=== PATIENT | female | born 1985 | race Caucasian/White ===

== ENCOUNTER → 2017-06-12 08:53 | Outpatient (CLI) | payer MEDICAID | END | disposition home or self-care (01) | LOC: D.NM 08:53 | DX: M25.562 Pain in left knee (principal) ==

== ENCOUNTER 2017-06-23 12:35 | Inpatient (IN) | payer MEDICAID ==
[~2017-06-23] VITALS: Ht 167.6 cm; Wt 63.6 kg
[2017-06-23 16:17] LABS: BASOPHILS 0.1 % (0-2); EOSINOPHILS 0.3 % (0-7); HEMATOCRIT 37.7 % (36.0-48.0); HEMOGLOBIN 12.9 g/dL (12-16); IMMATURE GRANULOCYTES 0.2 % (0-5); LYMPHOCYTES 13.3 % (15-50); MCH 31.1 pg (26.0-34.0); MCHC 34.2 g/dL (31.0-37.0); MCV 90.8 fL (80.0-100.0); MEAN PLATELET VOLUME 9.2 fL (7.4-10.4); NEUTROPHILS 81.1 % (40-80); PLATELET COUNT 251 10x3/uL (130-400); RBC 4.15 10x6/uL (4.00-5.40)
[2017-06-23 16:35] LABS: ALBUMIN 3.7 g/dL (3.4-5.0); ANION GAP 12.7 mmol/L (8-16); BILIRUBIN - TOTAL 0.56 mg/dL (0.2-1.3); CALCIUM 8.9 mg/dL (8.5-10.1); CARBON DIOXIDE 25.6 mmol/L (21.0-32.0); POTASSIUM - SERUM 3.3 mmol/L (3.5-5.1); PROTEIN - SERUM 7.3 g/dL (6.4-8.2)
[2017-06-23 16:52] LABS: UDS - AMPHET POSITIVE QUAL (NEGATIVE); UDS - BARB NEGATIVE QUAL (NEGATIVE); UDS - BENZO NEGATIVE QUAL (NEGATIVE); UDS - COCAINE NEGATIVE QUAL (NEGATIVE); UDS - OPIATE POSITIVE QUAL (NEGATIVE); UDS - PCP NEGATIVE QUAL (NEGATIVE); UDS - THC POSITIVE QUAL (NEGATIVE)
[2017-06-23 17:03] LABS: APPEARANCE CLEAR (CLEAR); BILIRUBIN NEGATIVE (NEGATIVE); COLOR YELLOW (YELLOW); GLUCOSE NEGATIVE (NEGATIVE); KETONE LARGE mg/dL (NEGATIVE); NITRITE NEGATIVE (NEGATIVE); PROTEIN NEGATIVE (NEGATIVE); SPECIFIC GRAVITY 1.025 (1.005-1.020); UROBILINOGEN NORMAL (NORMAL)
[2017-06-23 17:05] LABS: BACTERIA FEW /hpf (NONE SEEN); WHITE CELLS - URINE 0-5 /hpf (0-5)
[2017-06-23 23:02] VITALS: BP 92/63
[2017-06-23] MEDS ORDERED: PROZAC20 MG PO (23:13)
[2017-06-23] MEDS ORDERED: KLONOPIN1 MG PO (23:13)
[2017-06-23] MEDS ORDERED: ATIVAN2 MG PO (23:26)
[2017-06-23] MEDS ORDERED: PERCOCET 10/3251 TA1 PO (23:27)
[2017-06-23] MEDS ORDERED: BUSPAR5 MG PO (23:28)
[2017-06-23] MEDS ORDERED: PRENATAL COMPLE1 TAB PO (23:29)
[2017-06-23] MEDS ORDERED: VALIUM5 MG PO (23:29)
[2017-06-23 23:45] VITALS: BP 92/63; BMI 22.6
[2017-06-24 02:45] VITALS: BP 92/63
[2017-06-24 04:32] VITALS: BP 87/49
[2017-06-24 09:16] VITALS: Ht 167.6 cm; Wt 63.6 kg
[2017-06-24 12:27] VITALS: BP 105/64
[2017-06-24 22:58] VITALS: BP 105/55
[2017-06-25 01:21] VITALS: BP 93/57
[2017-06-25 05:44] VITALS: BP 106/54
[2017-06-25 08:32] VITALS: BP 100/58
[2017-06-25 12:07] VITALS: BP 97/33
[2017-06-25 23:07] VITALS: BP 101/59
[2017-06-26 05:06] VITALS: BP 89/55
[2017-06-26 08:11] VITALS: BP 94/52
[2017-06-26] MEDS ORDERED: PERCOCET 10/3251 TA1 PO (12:10)
[2017-06-26 12:21] VITALS: BP 90/56
[2017-07-03] MEDS ORDERED: ZOFRAN ODT4 MG/UDTAB PO (14:03)
== END 2017-06-26 15:39 | disposition home or self-care (01) | DRG 565 ==
LOC: D.ER 12:35 → D.MS 18:55 → D.EDHOLD 18:55 → D.MS 19:20
PROVIDERS: Nurse Practitioner Family
DX: D16.22 Benign neoplasm of long bones of left lower limb (principal); M90.562 Osteonecrosis in diseases classified elsewhere, left lower leg; K21.9 Gastro-esophageal reflux disease without esophagitis; F31.9 Bipolar disorder, unspecified; F43.10 Post-traumatic stress disorder, unspecified; F17.200 Nicotine dependence, unspecified, uncomplicated; Y04.0XXA Assault by unarmed brawl or fight, initial encounter

== ENCOUNTER → 2017-07-03 16:09 | Outpatient (CLI) | payer MEDICAID ==
[2017-06-24 09:16] VITALS: BMI 22.6
[2017-07-03 13:59] LABS: BASOPHILS 0.2 % (0-2); EOSINOPHILS 4.7 % (0-7); HEMATOCRIT 45.2 % (36.0-48.0); HEMOGLOBIN 14.9 g/dL (12-16); IMMATURE GRANULOCYTES 0.3 % (0-5); LYMPHOCYTES 21.8 % (15-50); MCH 30.5 pg (26.0-34.0); MCV 92.6 fL (80.0-100.0); MEAN PLATELET VOLUME 8.8 fL (7.4-10.4); MONOCYTES 7.3 % (2-11); NEUTROPHILS 65.7 % (40-80); PLATELET COUNT 268 10x3/uL (130-400); RBC 4.88 10x6/uL (4.00-5.40); RDW 12.9 % (11.5-14.5)
[2017-07-03 14:08] LABS: APTT 27.4 SECONDS (22.8-39.4); INR 0.99 (0.85-1.17); PROTIME 12.7 SECONDS (11.6-15.0)
[2017-07-03 14:11] LABS: APPEARANCE CLOUDY (CLEAR); BACTERIA MANY /hpf (NONE SEEN); BILIRUBIN NEGATIVE (NEGATIVE); COLOR YELLOW (YELLOW); EPITHELIAL CELLS 0-5 /hpf (0-5); GLUCOSE NEGATIVE (NEGATIVE); KETONE NEGATIVE (NEGATIVE); NITRITE POSITIVE (NEGATIVE); PROTEIN TRACE mg/dL (NEGATIVE); RED CELLS - URINE 0-5 /hpf (0-5); UROBILINOGEN NORMAL (NORMAL)
[2017-07-03 14:12] LABS: ANION GAP 12.6 mmol/L (8-16); CALCIUM 8.9 mg/dL (8.5-10.1); POTASSIUM - SERUM 3.6 mmol/L (3.5-5.1)
[~2017-07-03 16:09] MED LIST: ATIVAN2 MG PO; BENADRYL25 MG PO; BUSPAR5 MG PO; COLACE100 MG PO; DILAUDID4 MG; DILAUDID4 MG PO; ELIQUIS2.5 MG PO; KLONOPIN1 MG PO; PERCOCET 10/3251 TA1 PO; PRENATAL COMPLE1 TAB PO; PROZAC20 MG PO; VALIUM 2 MG TAB2 MG PO; VALIUM5 MG PO; VIBRAMYCIN 100100 MG PO; ZOFRAN ODT4 MG/UDTAB PO
== END | disposition home or self-care (01) ==
LOC: D.OPS 16:09 → EDSTATUS 07-04 07:30 → D.SDCHOLD 07-04 07:30 → D.PAN 07-04 07:30 → D.OPS 07-04 07:30
PROVIDERS: Orthopaedic Surgery
DX: D16.21 Benign neoplasm of long bones of right lower limb (principal); Z01.810 Encounter for preprocedural cardiovascular examination; Z01.811 Encounter for preprocedural respiratory examination; Z01.812 Encounter for preprocedural laboratory examination

== ENCOUNTER 2017-07-10 09:30 | Inpatient (IN) | payer MEDICAID ==
[~2017-07-10] VITALS: Ht 167.6 cm; Wt 60.0 kg
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
[~2017-07-10 09:30] MED LIST changes: -BENADRYL25 MG PO; -COLACE100 MG PO; -DILAUDID4 MG; -DILAUDID4 MG PO; -ELIQUIS2.5 MG PO; -VALIUM 2 MG TAB2 MG PO; -VIBRAMYCIN 100100 MG PO
[2017-07-10] MEDS ORDERED: DILAUDID4 MG (09:59)
[2017-07-10 10:05] VITALS: BP 108/71; Ht 167.6 cm; Wt 60.0 kg
[2017-07-10 10:08] LABS: APPEARANCE CLEAR (CLEAR); BILIRUBIN NEGATIVE (NEGATIVE); COLOR STRAW (YELLOW); GLUCOSE NEGATIVE (NEGATIVE); KETONE NEGATIVE (NEGATIVE); NITRITE NEGATIVE (NEGATIVE); PROTEIN NEGATIVE (NEGATIVE); SPECIFIC GRAVITY 1.005 (1.005-1.020); UROBILINOGEN NORMAL (NORMAL)
[2017-07-10 14:10] VITALS: BP 106/59
[2017-07-10 20:00] VITALS: BP 105/69
[2017-07-11 04:00] VITALS: BP 106/70
[2017-07-11 06:29] LABS: HEMATOCRIT 31.9 % (36.0-48.0); HEMOGLOBIN 10.3 g/dL (12-16); MCH 29.9 pg (26.0-34.0); MCHC 32.3 g/dL (31.0-37.0); MCV 92.7 fL (80.0-100.0); MEAN PLATELET VOLUME 9.3 fL (7.4-10.4); RBC 3.44 10x6/uL (4.00-5.40); RDW 12.8 % (11.5-14.5); WBC 16.1 10x3/uL (4.8-10.8)
[2017-07-11 08:28] VITALS: BP 109/72
[2017-07-11 13:09] VITALS: BP 118/85
[2017-07-11 16:03] VITALS: BP 116/74
[2017-07-11 20:00] VITALS: BP 128/76
[2017-07-12 04:00] VITALS: BP 117/75
[2017-07-12 05:08] LABS: HEMATOCRIT 26.3 % (36.0-48.0); HEMOGLOBIN 8.7 g/dL (12-16); MCH 30.2 pg (26.0-34.0); MCHC 33.1 g/dL (31.0-37.0); MCV 91.3 fL (80.0-100.0); MEAN PLATELET VOLUME 9.2 fL (7.4-10.4); RBC 2.88 10x6/uL (4.00-5.40); RDW 12.9 % (11.5-14.5)
[2017-07-12 05:10] LABS: WBC 11.2 10x3/uL (4.8-10.8)
[2017-07-12 08:24] VITALS: BP 126/79
[2017-07-12] MEDS ORDERED: DILAUDID4 MG PO (08:34)
[2017-07-12] MEDS ORDERED: ELIQUIS2.5 MG PO (08:34)
== END 2017-07-12 17:08 | disposition home or self-care (01) | DRG 470 ==
LOC: D.SDCHOLD 09:30 → D.MS 09:30 → D.SDCHOLD 11:45 → D.MS 13:49
PROVIDERS: Orthopaedic Surgery
PROC: 0SRD0JZ Replacement of Left Knee Joint with Synthetic Substitute, Open Approach (ICD-10-PCS; principal; 2017-07-10 11:45)
DX: D16.22 Benign neoplasm of long bones of left lower limb (principal); D62 Acute posthemorrhagic anemia; F17.200 Nicotine dependence, unspecified, uncomplicated

== ENCOUNTER 2017-08-18 08:18 | Inpatient (IN) | payer MEDICAID ==
[~2017-08-18] VITALS: Ht 167.6 cm; Wt 59.1 kg
[2017-08-18] VITALS (10 sets, daily range): BP systolic 102–135; BP diastolic 68–85; BMI 21.0
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
[~2017-08-18 08:18] MED LIST changes: +DILAUDID4 MG; +DILAUDID4 MG PO; +ELIQUIS2.5 MG PO
[2017-08-18] MEDS ORDERED: VIBRAMYCIN 100100 MG PO (09:07)
[2017-08-18 10:24] LABS: HEMATOCRIT 36.8 % (36.0-48.0); HEMOGLOBIN 11.9 g/dL (12-16); MCH 30.4 pg (26.0-34.0); MCHC 32.3 g/dL (31.0-37.0); MCV 93.9 fL (80.0-100.0); MEAN PLATELET VOLUME 9.5 fL (7.4-10.4); RBC 3.92 10x6/uL (4.00-5.40); RDW 13.7 % (11.5-14.5); WBC 7.4 10x3/uL (4.8-10.8)
[2017-08-18 10:34] LABS: APTT 28.7 SECONDS (22.8-39.4); INR 0.94 (0.85-1.17); PROTIME 12.1 SECONDS (11.6-15.0)
[2017-08-19] VITALS: BP 103/72
[2017-08-19 04:00] VITALS: BP 121/77
[2017-08-19 05:42] LABS: HEMATOCRIT 36.1 % (36.0-48.0); HEMOGLOBIN 11.5 g/dL (12-16); MCH 30.2 pg (26.0-34.0); MCHC 31.9 g/dL (31.0-37.0); MCV 94.8 fL (80.0-100.0); MEAN PLATELET VOLUME 9.7 fL (7.4-10.4); RBC 3.81 10x6/uL (4.00-5.40); RDW 13.6 % (11.5-14.5); WBC 8.5 10x3/uL (4.8-10.8)
[2017-08-19 08:54] VITALS: BP 122/80
[2017-08-19 15:57] VITALS: BP 126/74
[2017-08-19 23:18] VITALS: BP 111/68
[2017-08-20 05:17] VITALS: BP 121/75
[2017-08-20 06:18] LABS: HEMOGLOBIN 10.9 g/dL (12-16); MCH 30.1 pg (26.0-34.0); MCHC 32.1 g/dL (31.0-37.0); MCV 93.9 fL (80.0-100.0); MEAN PLATELET VOLUME 9.6 fL (7.4-10.4); RBC 3.62 10x6/uL (4.00-5.40); RDW 13.3 % (11.5-14.5)
[2017-08-20 08:14] VITALS: BP 113/70
[2017-08-20 12:13] VITALS: BP 130/77
[2017-08-20 16:03] VITALS: BP 122/69
[2017-08-21 09:01] VITALS: BP 103/63
[2017-08-21 13:06] VITALS: BP 103/60
[2017-08-21 15:22] VITALS: BP 108/66
[2017-08-21 21:56] VITALS: BP 112/67
[2017-08-22 05:18] VITALS: BP 124/68
[2017-08-22 09:13] VITALS: BP 84/54
[2017-08-22 15:00] VITALS: BP 100/57
[2017-08-22 15:38] VITALS: Ht 167.6 cm; Wt 59.1 kg
[2017-08-22 18:17] VITALS: BP 103/58
[2017-08-22 20:00] VITALS: BP 110/63
[2017-08-23 04:00] VITALS: BP 98/57
[2017-08-23 09:03] VITALS: BP 122/65
[2017-08-23 13:32] VITALS: BP 98/62
[2017-08-23 18:59] VITALS: BP 86/53
[2017-08-23 20:00] VITALS: BP 111/69
[2017-08-24 06:07] VITALS: BP 105/71
[2017-08-24 06:21] LABS: BASOPHILS 0.3 % (0-2); EOSINOPHILS 11.5 % (0-7); HEMATOCRIT 40.4 % (36.0-48.0); HEMOGLOBIN 12.9 g/dL (12-16); IMMATURE GRANULOCYTES 0.3 % (0-5); LYMPHOCYTES 28.7 % (15-50); MCH 29.9 pg (26.0-34.0); MCHC 31.9 g/dL (31.0-37.0); MCV 93.7 fL (80.0-100.0); MEAN PLATELET VOLUME 9.5 fL (7.4-10.4); MONOCYTES 9.4 % (2-11); NEUTROPHILS 49.8 % (40-80); RBC 4.31 10x6/uL (4.00-5.40); RDW 13.6 % (11.5-14.5); WBC 9.4 10x3/uL (4.8-10.8)
[2017-08-24 06:26] LABS: PLATELET COUNT 379 10x3/uL (130-400)
[2017-08-24 06:48] LABS: CALC OSMOLALITY 270 mosm/kg (275-300); CALCIUM 9.4 mg/dL (8.5-10.1); CARBON DIOXIDE 25.3 mmol/L (21.0-32.0); CHLORIDE - SERUM 99 mmol/L (98-107); CREATININE - SERUM 0.9 mg/dL (0.6-1.3); GLUCOSE 103 mg/dL (74-106); POTASSIUM - SERUM 3.5 mmol/L (3.5-5.1); SODIUM 136 mmol/L (136-145); UREA NITROGEN 9 mg/dL (7-18); eGFR NON AFRICAN AMERICAN 77 mL/min (90-120)
[2017-08-24 09:07] VITALS: BP 92/65
[2017-08-24 12:29] VITALS: BP 139/65
[2017-08-24 13:13] VITALS: BP 103/64
[2017-08-24 17:49] VITALS: BP 128/90
[2017-08-24 20:00] VITALS: BP 119/85
[2017-08-25 04:00] VITALS: BP 113/77
[2017-08-25 08:05] LABS: HEMATOCRIT 30.5 % (36.0-48.0); HEMOGLOBIN 9.7 g/dL (12-16); MCH 29.4 pg (26.0-34.0); MCHC 31.8 g/dL (31.0-37.0); MCV 92.4 fL (80.0-100.0); RBC 3.3 10x6/uL (4.00-5.40); RDW 13.3 % (11.5-14.5); WBC 9.5 10x3/uL (4.8-10.8)
[2017-08-25 08:23] LABS: CALCIUM 8.4 mg/dL (8.5-10.1); CARBON DIOXIDE 29.2 mmol/L (21.0-32.0); CHLORIDE - SERUM 98 mmol/L (98-107); CREATININE - SERUM 0.8 mg/dL (0.6-1.3); GLUCOSE 112 mg/dL (74-106); SODIUM 134 mmol/L (136-145); eGFR NON AFRICAN AMERICAN 89 mL/min (90-120)
[2017-08-25 08:24] LABS: CALC OSMOLALITY 268 mosm/kg (275-300); POTASSIUM - SERUM 4.8 mmol/L (3.5-5.1); UREA NITROGEN 13 mg/dL (7-18)
[2017-08-25 12:02] VITALS: BP 125/85
[2017-08-25 17:14] VITALS: BP 109/72
[2017-08-25 21:32] VITALS: BP 121/83
[2017-08-26 04:56] VITALS: BP 114/68
[2017-08-26 08:59] VITALS: BP 106/64
[2017-08-26 13:09] VITALS: BP 91/54
[2017-08-26 16:14] VITALS: BP 96/53
[2017-08-26 22:35] VITALS: BP 110/66
[2017-08-27 08:25] VITALS: BP 108/61
[2017-08-27 12:11] VITALS: BP 100/52
[2017-08-27 16:42] VITALS: BP 111/69
[2017-08-27 20:00] VITALS: BP 111/57
[2017-08-28] VITALS (8 sets, daily range): BP systolic 94–114; BP diastolic 56–70
[2017-08-28 11:38] LABS: HEMATOCRIT 23.9 % (36.0-48.0); HEMOGLOBIN 7.7 g/dL (12-16); MCH 29.4 pg (26.0-34.0); MCHC 32.2 g/dL (31.0-37.0); MCV 91.2 fL (80.0-100.0); MEAN PLATELET VOLUME 8.6 fL (7.4-10.4); PLATELET COUNT 331 10x3/uL (130-400); RBC 2.62 10x6/uL (4.00-5.40); RDW 13.1 % (11.5-14.5); WBC 8.6 10x3/uL (4.8-10.8)
[2017-08-28 12:09] LABS: CALC OSMOLALITY 265 mosm/kg (275-300); CALCIUM 8.4 mg/dL (8.5-10.1); CARBON DIOXIDE 32.4 mmol/L (21.0-32.0); CHLORIDE - SERUM 97 mmol/L (98-107); CREATININE - SERUM 0.7 mg/dL (0.6-1.3); GLUCOSE 92 mg/dL (74-106); POTASSIUM - SERUM 3.9 mmol/L (3.5-5.1); SODIUM 134 mmol/L (136-145); UREA NITROGEN 8 mg/dL (7-18); eGFR NON AFRICAN AMERICAN > 90 mL/min (90-120)
[2017-08-28 12:11] LABS: C-REACTIVE PROTEIN 19.3 mg/dL (0.0-0.9)
[2017-08-28 12:40] LABS: ERYTHROCYTE SEDIMENTATION RATE 96 mm/hr (0-20)
[2017-08-29 04:00] VITALS: BP 105/72
[2017-08-29] MEDS ORDERED: DILAUDID4 MG PO ×2 (07:57→08:29)
[2017-08-29] MEDS ORDERED: ELIQUIS2.5 MG PO (07:58)
[2017-08-29 08:51] VITALS: BP 122/68
[2017-08-29 10:04] LABS: BASOPHILS 0.2 % (0-2); EOSINOPHILS 7.2 % (0-7); HEMATOCRIT 28.6 % (36.0-48.0); IMMATURE GRANULOCYTES 0.7 % (0-5); LYMPHOCYTES 15.6 % (15-50); MCH 28.8 pg (26.0-34.0); MCHC 32.5 g/dL (31.0-37.0); MEAN PLATELET VOLUME 8.4 fL (7.4-10.4); MONOCYTES 5.3 % (2-11); PLATELET COUNT 335 10x3/uL (130-400); RDW 14.2 % (11.5-14.5); WBC 8.4 10x3/uL (4.8-10.8)
[2017-08-29 10:05] LABS: HEMOGLOBIN 9.3 g/dL (12-16); MCV 88.5 fL (80.0-100.0); RBC 3.23 10x6/uL (4.00-5.40)
[2017-08-29 10:30] LABS: CALC OSMOLALITY 270 mosm/kg (275-300); CALCIUM 8.1 mg/dL (8.5-10.1); CARBON DIOXIDE 32.5 mmol/L (21.0-32.0); CHLORIDE - SERUM 98 mmol/L (98-107); CREATININE - SERUM 0.6 mg/dL (0.6-1.3); GLUCOSE 113 mg/dL (74-106); POTASSIUM - SERUM 3.8 mmol/L (3.5-5.1); SODIUM 136 mmol/L (136-145); UREA NITROGEN 6 mg/dL (7-18); eGFR NON AFRICAN AMERICAN > 90 mL/min (90-120)
[2017-08-29 10:31] LABS: C-REACTIVE PROTEIN 23.1 mg/dL (0.0-0.9)
[2017-08-29 15:20] VITALS: BP 124/76
== END 2017-08-29 15:40 | disposition home health service (06) | DRG 464 ==
LOC: D.OPS 08:18 → D.PAN 09:30 → D.MS 13:10 → D.OPS 13:11 → D.MS 08-29 15:40
PROVIDERS: Anesthesiology; Orthopaedic Surgery; Student in an Organized Health Care Education/Training Program
PROC: 0JDP0ZZ Extraction of Left Lower Leg Subcutaneous Tissue and Fascia, Open Approach (ICD-10-PCS; principal; 2017-08-18 09:30)
PROC: 0SHD08Z Insertion of Spacer into Left Knee Joint, Open Approach (ICD-10-PCS; 2017-08-24)
PROC: 0SPD0JZ Removal of Synthetic Substitute from Left Knee Joint, Open Approach (ICD-10-PCS; 2017-08-24 13:15)
PROC: 02HV33Z Insertion of Infusion Device into Superior Vena Cava, Percutaneous Approach (ICD-10-PCS; 2017-08-28)
PROC: B548ZZA Ultrasonography of Superior Vena Cava, Guidance (ICD-10-PCS; 2017-08-28)
DX: T84.54XA Infection and inflammatory reaction due to internal left knee prosthesis, initial encounter (principal); T81.4XXA Infection following a procedure, initial encounter; D62 Acute posthemorrhagic anemia; F17.200 Nicotine dependence, unspecified, uncomplicated; D16.9 Benign neoplasm of bone and articular cartilage, unspecified; F32.9 Major depressive disorder, single episode, unspecified; F41.9 Anxiety disorder, unspecified; F43.10 Post-traumatic stress disorder, unspecified

== ENCOUNTER 2017-09-02 09:12 | Inpatient (IN) | payer MEDICAID ==
[~2017-09-02] VITALS: Ht 165.1 cm; Wt 59.1 kg
[~2017-09-02 09:12] MED LIST changes: +VIBRAMYCIN 100100 MG PO
[2017-09-02 10:19] LABS: BASOPHILS 0.2 % (0-2); EOSINOPHILS 1.5 % (0-7); HEMOGLOBIN 8.6 g/dL (12-16); IMMATURE GRANULOCYTES 0.4 % (0-5); LYMPHOCYTES 10.8 % (15-50); MCH 28.8 pg (26.0-34.0); MCHC 33.1 g/dL (31.0-37.0); MONOCYTES 8.4 % (2-11); NEUTROPHILS 78.7 % (40-80); RBC 2.99 10x6/uL (4.00-5.40); RDW 14.4 % (11.5-14.5); WBC 13.6 10x3/uL (4.8-10.8)
[2017-09-02 10:20] LABS: PLATELET COUNT 408 10x3/uL (130-400)
[2017-09-02 10:34] LABS: ALBUMIN 2.2 g/dL (3.4-5.0); ALKALINE PHOSPHATASE 107 U/L (46-116); ALT (SGPT) 8 U/L (10-68); BILIRUBIN - TOTAL 0.47 mg/dL (0.2-1.3); CALC OSMOLALITY 270 mosm/kg (275-300); CALCIUM 8.4 mg/dL (8.5-10.1); CARBON DIOXIDE 27.5 mmol/L (21.0-32.0); CHLORIDE - SERUM 98 mmol/L (98-107); CREATININE - SERUM 0.7 mg/dL (0.6-1.3); GLUCOSE 116 mg/dL (74-106); PROTEIN - SERUM 6.9 g/dL (6.4-8.2); SODIUM 135 mmol/L (136-145); UREA NITROGEN 13 mg/dL (7-18); eGFR NON AFRICAN AMERICAN > 90 mL/min (90-120)
[2017-09-02 11:47] LABS: ERYTHROCYTE SEDIMENTATION RATE 81 mm/hr (0-20)
[2017-09-02 12:51] VITALS: BP 114/74; Ht 165.1 cm; Wt 59.1 kg
[2017-09-02 20:00] VITALS: BP 112/73
[2017-09-03] VITALS: BP 102/67
[2017-09-03] MEDS ORDERED: VALIUM 2 MG TAB2 MG PO (01:59)
[2017-09-03] MEDS ORDERED: COLACE100 MG PO (02:00)
[2017-09-03] MEDS ORDERED: BENADRYL25 MG PO (02:00)
[2017-09-03 07:48] LABS: HEMATOCRIT 25.8 % (36.0-48.0); HEMOGLOBIN 8.2 g/dL (12-16); MCH 28.3 pg (26.0-34.0); MCHC 31.8 g/dL (31.0-37.0); MEAN PLATELET VOLUME 8.3 fL (7.4-10.4); RBC 2.9 10x6/uL (4.00-5.40); RDW 14.4 % (11.5-14.5)
[2017-09-03 07:49] LABS: WBC 9.3 10x3/uL (4.8-10.8)
[2017-09-03 09:15] VITALS: BP 105/70
[2017-09-03 16:10] VITALS: BP 118/75
[2017-09-03 17:56] LABS: APPEARANCE HAZY (CLEAR); COLOR DK YELLOW (YELLOW); GLUCOSE NEGATIVE (NEGATIVE); NITRITE NEGATIVE (NEGATIVE); PROTEIN NEGATIVE (NEGATIVE)
[2017-09-03 17:57] LABS: BILIRUBIN NEGATIVE (NEGATIVE); KETONE NEGATIVE (NEGATIVE)
[2017-09-03 18:31] LABS: UDS - AMPHET POSITIVE QUAL (NEGATIVE); UDS - BARB NEGATIVE QUAL (NEGATIVE); UDS - BENZO POSITIVE QUAL (NEGATIVE); UDS - COCAINE NEGATIVE QUAL (NEGATIVE); UDS - OPIATE POSITIVE QUAL (NEGATIVE); UDS - PCP NEGATIVE QUAL (NEGATIVE); UDS - THC POSITIVE QUAL (NEGATIVE)
[2017-09-03 22:40] VITALS: BP 112/65
[2017-09-04 08:23] VITALS: BP 113/75
[2017-09-04 12:09] VITALS: BP 118/70
[2017-09-04 15:23] LABS: HEMATOCRIT 26.8 % (36.0-48.0); HEMOGLOBIN 8.3 g/dL (12-16); MCV 90.5 fL (80.0-100.0); MEAN PLATELET VOLUME 8.5 fL (7.4-10.4); RBC 2.96 10x6/uL (4.00-5.40); RDW 14.4 % (11.5-14.5); WBC 8.2 10x3/uL (4.8-10.8)
[2017-09-04 16:49] VITALS: BP 104/58
[2017-09-04 20:20] VITALS: BP 106/66
[2017-09-05 04:22] VITALS: BP 96/58
[2017-09-05 07:00] VITALS: BP 100/59
[2017-09-05 12:25] VITALS: BP 100/60
[2017-09-05 17:41] VITALS: BP 98/56
[2017-09-05 20:53] VITALS: BP 112/67
[2017-09-06 01:13] VITALS: BP 124/68
[2017-09-06 04:45] VITALS: BP 138/74
[2017-09-06 07:43] VITALS: BP 101/59
[2017-09-06 15:49] VITALS: BP 102/52
[2017-09-06 20:53] VITALS: BP 93/54
[2017-09-07 02:16] VITALS: BP 104/64
[2017-09-07 04:59] VITALS: BP 116/68
[2017-09-07 07:51] VITALS: BP 92/49
[2017-09-07] MEDS ORDERED: DILAUDID4 MG PO ×2 (08:32→08:39)
== END 2017-09-07 10:50 | disposition home health service (06) | DRG 561 ==
LOC: D.ER 09:12 → D.MS 12:01
PROVIDERS: Emergency Medicine; Nurse Practitioner Family; Orthopaedic Surgery Foot and Ankle Surgery
DX: T84.54XA Infection and inflammatory reaction due to internal left knee prosthesis, initial encounter (principal); F17.200 Nicotine dependence, unspecified, uncomplicated; F11.90 Opioid use, unspecified, uncomplicated; F13.90 Sedative, hypnotic, or anxiolytic use, unspecified, uncomplicated; F15.90 Other stimulant use, unspecified, uncomplicated; F12.90 Cannabis use, unspecified, uncomplicated; B96.89 Other specified bacterial agents as the cause of diseases classified elsewhere; E87.6 Hypokalemia; Q78.4 Enchondromatosis

== ENCOUNTER 2017-09-14 14:53 | Emergency (ER) | payer MEDICAID ==
[2017-09-02 12:51] VITALS: BMI 21.6
[~2017-09-14 14:53] MED LIST changes: +BENADRYL25 MG PO; +COLACE100 MG PO; +VALIUM 2 MG TAB2 MG PO
[2017-09-14 15:56] LABS: BASOPHILS 0.5 % (0-2); EOSINOPHILS 5.7 % (0-7); HEMOGLOBIN 10.3 g/dL (12-16); IMMATURE GRANULOCYTES 0.1 % (0-5); LYMPHOCYTES 28.4 % (15-50); MCH 28.1 pg (26.0-34.0); MCHC 32.2 g/dL (31.0-37.0); MCV 87.2 fL (80.0-100.0); MEAN PLATELET VOLUME 8.5 fL (7.4-10.4); MONOCYTES 5.9 % (2-11); NEUTROPHILS 59.4 % (40-80); PLATELET COUNT 428 10x3/uL (130-400); RBC 3.67 10x6/uL (4.00-5.40); RDW 14.3 % (11.5-14.5); WBC 8.7 10x3/uL (4.8-10.8)
[2017-09-14 16:04] LABS: APTT 32.9 SECONDS (22.8-39.4); INR 1.2 (0.85-1.17); PROTIME 14.8 SECONDS (11.6-15.0)
[2017-09-14 16:10] LABS: ALBUMIN 2.9 g/dL (3.4-5.0); ALKALINE PHOSPHATASE 116 U/L (46-116); ALT (SGPT) 9 U/L (10-68); BILIRUBIN - TOTAL 0.24 mg/dL (0.2-1.3); CALC OSMOLALITY 273 mosm/kg (275-300); CALCIUM 9.1 mg/dL (8.5-10.1); CHLORIDE - SERUM 101 mmol/L (98-107); CREATININE - SERUM 0.7 mg/dL (0.6-1.3); GLUCOSE 89 mg/dL (74-106); POTASSIUM - SERUM 3.5 mmol/L (3.5-5.1); PROTEIN - SERUM 7.7 g/dL (6.4-8.2); SODIUM 138 mmol/L (136-145); UREA NITROGEN 10 mg/dL (7-18); eGFR NON AFRICAN AMERICAN > 90 mL/min (90-120)
[2017-09-14 19:02] LABS: ERYTHROCYTE SEDIMENTATION RATE 35 mm/hr (0-20)
== END 2017-09-14 18:12 | disposition home or self-care (01) ==
LOC: D.ER 14:53
PROVIDERS: Family Medicine; Orthopaedic Surgery
DX: M25.562 Pain in left knee (principal)

== ENCOUNTER → 2017-09-20 20:20 | Outpatient (CLI) | payer MEDICAID ==
[2017-09-02 12:51] VITALS: BMI 21.6
[2017-09-20 21:04] LABS: BASOPHILS 0.1 % (0-2); EOSINOPHILS 3.9 % (0-7); HEMATOCRIT 40.4 % (36.0-48.0); HEMOGLOBIN 12.8 g/dL (12-16); IMMATURE GRANULOCYTES 0.1 % (0-5); LYMPHOCYTES 27.8 % (15-50); MCH 28.6 pg (26.0-34.0); MCHC 31.7 g/dL (31.0-37.0); MCV 90.4 fL (80.0-100.0); MEAN PLATELET VOLUME 9.6 fL (7.4-10.4); MONOCYTES 7.7 % (2-11); NEUTROPHILS 60.4 % (40-80); PLATELET COUNT 381 10x3/uL (130-400); RBC 4.47 10x6/uL (4.00-5.40); RDW 14.8 % (11.5-14.5); WBC 7.4 10x3/uL (4.8-10.8)
[2017-09-20 21:22] LABS: ALBUMIN 3.6 g/dL (3.4-5.0); ALKALINE PHOSPHATASE 133 U/L (46-116); ALT (SGPT) 10 U/L (10-68); CALC OSMOLALITY 276 mosm/kg (275-300); CALCIUM 9.2 mg/dL (8.5-10.1); CARBON DIOXIDE 26.2 mmol/L (21.0-32.0); CHLORIDE - SERUM 102 mmol/L (98-107); CREATININE - SERUM 0.6 mg/dL (0.6-1.3); POTASSIUM - SERUM 4.1 mmol/L (3.5-5.1); PROTEIN - SERUM 8.2 g/dL (6.4-8.2); SODIUM 140 mmol/L (136-145); UREA NITROGEN 12 mg/dL (7-18); eGFR NON AFRICAN AMERICAN > 90 mL/min (90-120)
[2017-09-20 21:26] LABS: GLUCOSE 68 mg/dL (74-106)
[2017-09-20 22:35] LABS: ERYTHROCYTE SEDIMENTATION RATE 13 mm/hr (0-20)
== END | disposition home or self-care (01) ==
LOC: D.LABREF 20:20
PROVIDERS: Student in an Organized Health Care Education/Training Program
DX: T84.50XD Infection and inflammatory reaction due to unspecified internal joint prosthesis, subsequent encounter (principal); Z51.81 Encounter for therapeutic drug level monitoring; Z79.2 Long term (current) use of antibiotics

== ENCOUNTER → 2017-09-26 15:29 | Outpatient (CLI) | payer MEDICAID ==
[2017-09-02 12:51] VITALS: BMI 21.6
[2017-09-26 16:31] LABS: BASOPHILS 0.4 % (0-2); EOSINOPHILS 5.1 % (0-7); HEMATOCRIT 38.4 % (36.0-48.0); HEMOGLOBIN 12.2 g/dL (12-16); IMMATURE GRANULOCYTES 0.1 % (0-5); LYMPHOCYTES 32.6 % (15-50); MCH 28.2 pg (26.0-34.0); MCHC 31.8 g/dL (31.0-37.0); MCV 88.9 fL (80.0-100.0); MEAN PLATELET VOLUME 9.3 fL (7.4-10.4); MONOCYTES 8.1 % (2-11); NEUTROPHILS 53.7 % (40-80); PLATELET COUNT 322 10x3/uL (130-400); RBC 4.32 10x6/uL (4.00-5.40); RDW 14.6 % (11.5-14.5); WBC 7.4 10x3/uL (4.8-10.8)
[2017-09-26 17:01] LABS: C-REACTIVE PROTEIN 0.2 mg/dL (0.0-0.9); CREATININE - SERUM 0.8 mg/dL (0.6-1.3)
[2017-09-26 18:43] LABS: ERYTHROCYTE SEDIMENTATION RATE 8 mm/hr (0-20)
== END | disposition home or self-care (01) ==
LOC: D.LABREF 15:29
PROVIDERS: Student in an Organized Health Care Education/Training Program
DX: M00.9 Pyogenic arthritis, unspecified (principal)

== ENCOUNTER → 2017-10-02 10:00 | Outpatient (CLI) | payer MEDICAID ==
[2017-09-02 12:51] VITALS: BMI 21.6
[2017-10-03 11:34] LABS: BASOPHILS 0.4 % (0-2); EOSINOPHILS 8.1 % (0-7); HEMATOCRIT 39.6 % (36.0-48.0); HEMOGLOBIN 11.6 g/dL (12-16); IMMATURE GRANULOCYTES 0.2 % (0-5); LYMPHOCYTES 33.3 % (15-50); MCH 27.4 pg (26.0-34.0); MCHC 29.3 g/dL (31.0-37.0); MCV 93.6 fL (80.0-100.0); MEAN PLATELET VOLUME 9.9 fL (7.4-10.4); MONOCYTES 9.4 % (2-11); NEUTROPHILS 48.6 % (40-80); RBC 4.23 10x6/uL (4.00-5.40); RDW 14.6 % (11.5-14.5); WBC 5.4 10x3/uL (4.8-10.8)
[2017-10-03 11:36] LABS: PLATELET COUNT 245 10x3/uL (130-400)
[2017-10-03 11:47] LABS: CREATININE - SERUM 0.7 mg/dL (0.6-1.3); UREA NITROGEN 9 mg/dL (7-18)
[2017-10-03 11:50] LABS: C-REACTIVE PROTEIN < 0.2 mg/dL (0.0-0.9)
[2017-10-03 12:44] LABS: ERYTHROCYTE SEDIMENTATION RATE 2 mm/hr (0-20)
== END | disposition home or self-care (01) ==
LOC: D.LABREF 10:00
PROVIDERS: Student in an Organized Health Care Education/Training Program
DX: M00.862 Arthritis due to other bacteria, left knee (principal)

== ENCOUNTER → 2017-10-09 23:39 | Outpatient (CLI) | payer MEDICAID ==
[2017-09-02 12:51] VITALS: BMI 21.6
[2017-10-09 23:52] LABS: HEMATOCRIT 38.1 % (36.0-48.0); HEMOGLOBIN 12.1 g/dL (12-16); LYMPHOCYTES 24.4 % (15-50); MCHC 31.8 g/dL (31.0-37.0); MCV 88.2 fL (80.0-100.0); MEAN PLATELET VOLUME 8.8 fL (7.4-10.4); NEUTROPHILS 61.6 % (40-80); PLATELET COUNT 242 10x3/uL (130-400); RBC 4.32 10x6/uL (4.00-5.40); RDW 14.4 % (11.5-14.5); WBC 4.7 10x3/uL (4.8-10.8)
[2017-10-10 00:12] LABS: C-REACTIVE PROTEIN 0.2 mg/dL (0.0-0.9); CREATININE - SERUM 0.8 mg/dL (0.6-1.3)
[2017-10-10 00:53] LABS: ERYTHROCYTE SEDIMENTATION RATE 129 mm/hr (0-20)
== END | disposition home or self-care (01) ==
LOC: D.LABREF 23:39
PROVIDERS: Student in an Organized Health Care Education/Training Program
DX: M00.9 Pyogenic arthritis, unspecified (principal)

== ENCOUNTER → 2017-10-16 16:41 | Outpatient (CLI) | payer MEDICAID ==
[2017-09-02 12:51] VITALS: BMI 21.6
[~2017-10-16 16:41] MED LIST changes: +DOXYCYCLINE HY100 M2 PO; +HYDROCODON-ACE1 EAC7 PO; +MAXIPIME 2 GM/D52 G1 IV
[2017-10-16 20:10] LABS: BASOPHILS 0.3 % (0-2); EOSINOPHILS 5.2 % (0-7); HEMATOCRIT 38.6 % (36.0-48.0); HEMOGLOBIN 12.4 g/dL (12-16); IMMATURE GRANULOCYTES 0.2 % (0-5); LYMPHOCYTES 26.8 % (15-50); MCH 28.4 pg (26.0-34.0); MCHC 32.1 g/dL (31.0-37.0); MCV 88.5 fL (80.0-100.0); MEAN PLATELET VOLUME 9.6 fL (7.4-10.4); MONOCYTES 8.1 % (2-11); NEUTROPHILS 59.4 % (40-80); PLATELET COUNT 269 10x3/uL (130-400); RBC 4.36 10x6/uL (4.00-5.40); RDW 14.6 % (11.5-14.5); WBC 6.6 10x3/uL (4.8-10.8)
[2017-10-16 20:47] LABS: C-REACTIVE PROTEIN 0.9 mg/dL (0.0-0.9); CREATININE - SERUM 0.5 mg/dL (0.6-1.3)
[2017-10-16 21:17] LABS: ERYTHROCYTE SEDIMENTATION RATE 4 mm/hr (0-20)
== END | disposition home or self-care (01) ==
LOC: D.LAB 16:41
PROVIDERS: Student in an Organized Health Care Education/Training Program
DX: M00.9 Pyogenic arthritis, unspecified (principal)

== ENCOUNTER 2017-11-20 11:30 | Inpatient (IN) | payer MEDICAID ==
[2017-11-17 12:58] LABS: APPEARANCE HAZY (CLEAR); BASOPHILS 0.3 % (0-2); BILIRUBIN NEGATIVE (NEGATIVE); COLOR YELLOW (YELLOW); EOSINOPHILS 3.9 % (0-7); GLUCOSE NEGATIVE (NEGATIVE); HEMATOCRIT 39.9 % (36.0-48.0); IMMATURE GRANULOCYTES 0.3 % (0-5); KETONE NEGATIVE (NEGATIVE); LYMPHOCYTES 24.9 % (15-50); MCH 28.7 pg (26.0-34.0); MCHC 32.6 g/dL (31.0-37.0); MCV 88.1 fL (80.0-100.0); MEAN PLATELET VOLUME 8.8 fL (7.4-10.4); MONOCYTES 5.7 % (2-11); NEUTROPHILS 64.9 % (40-80); NITRITE NEGATIVE (NEGATIVE); PLATELET COUNT 271 10x3/uL (130-400); PROTEIN NEGATIVE (NEGATIVE); RBC 4.53 10x6/uL (4.00-5.40); RDW 14.8 % (11.5-14.5); UROBILINOGEN NORMAL (NORMAL)
[2017-11-17 13:09] LABS: CALC OSMOLALITY 275 mosm/kg (275-300); CALCIUM 8.4 mg/dL (8.5-10.1); CARBON DIOXIDE 30.8 mmol/L (21.0-32.0); CHLORIDE - SERUM 103 mmol/L (98-107); CREATININE - SERUM 0.9 mg/dL (0.6-1.3); POTASSIUM - SERUM 3.8 mmol/L (3.5-5.1); SODIUM 140 mmol/L (136-145); UREA NITROGEN 13 mg/dL (7-18); eGFR NON AFRICAN AMERICAN 77 mL/min (90-120)
[2017-11-17 13:15] LABS: GLUCOSE 50 mg/dL (74-106)
[2017-11-17 13:29] LABS: INR 0.96 (0.85-1.17); PROTIME 12.4 SECONDS (11.6-15.0)
[~2017-11-20] VITALS: Ht 165.1 cm; Wt 56.7 kg
--- NOTE | ~2017-11-20 | OP ---
PATIENT NAME: GREGORIO MORALES MEDICAL RECORD: [id number] :86 LOCATION:D.MS Brand2218 ADMISSION DATE:11/20/17 SURGEON: HAKEEM RENAE MD DATE OF OPERATION: 11/20/2017 PREOPERATIVE DIAGNOSIS: Prior infected total knee arthroplasty. POSTOPERATIVE DIAGNOSIS: Prior infected total knee arthroplasty. PROCEDURE: Revision total knee arthroplasty of the left knee. SURGEON: Hakeem Renae MD ANESTHESIA: Fouzia Cooper INTRAOPERATIVE COMPLICATIONS: None. SUMMARY OF PATHOLOGIC FINDINGS: The patient has a very clean wound bed, did not have too much bone loss so that the revision total stabilizer from [place] could not be used. OPERATIVE SUMMARY IN DETAIL: After obtaining the appropriate preoperative orthopedic surgery consent as well as anesthetic consultation, evaluation, and clearance, the patient was brought to the operative room and placed on the operating table in supine position after adequate general laryngeal mask airway was administered. Tourniquet was placed about the proximal aspect of the left lower extremity. Left lower extremity was then prepped and draped in routine sterile fashion. The leg was elevated and exsanguinated. Tourniquet was inflated to 350 mmHg. Previously utilized midline was then taken again for a paramedian arthrotomy. The patella was mobilized and the cement spacer was serially and sequentially removed. At this point, copious irrigation was then followed by gentle flexion of the knee and then the distal femur was exposed. All soft tissue was removed from the bone end. Serial and sequential reaming was done on the femoral side for a size 14 x 150 stem. Appropriate measurements were taken and in the end, a small offset was needed that is 2 mm offset at the 12 o'clock position on a size 4 femur with distal femoral augmentations bilaterally of 10 and a lateral posterior augmentation of 5. The trial to this after all the cuts had been made was put into place with excellent fit and good position. Attention was then turned to the tibia. Again, serial and sequential reaming and broaching were done for a size 13 x 100 stem with a 30-mm polyethylene implant on a size 4. These trials were put in place, taken through range of motion and found to be stable in all planes. With the trial in, the patella was cut for a universal resurfacing patella. Final preparations for a size 31 were made. When this was all taken through range of motion and found to be stable, all of the trial implants were taken out. The knee was then irrigated thoroughly while the final implants were being assembled on the back table. At this point, the final implants were cemented into place. All excess cement was removed. After the cement was allowed to harden, the knee was taken through range of motion, good patellar tracking was noted. Paramedian arthrotomy was closed with #2 Ethibond in [id number] interrupted mode. This was then followed by #1 Vicryl, 2-0 Vicryl, and skin monet. Sterile dressings were applied. The tourniquet was deflated. The patient was awakened and taken to recovery room in stable condition. All final needle and sponge counts were correct. OPERATIVE REPORT [id number] GREGORIO MORALES TRANSINT:[id number] Voice Confirmation ID: [id number] DOCUMENT ID: [id number] OC PADGETT, HAKEEM PERDUE at 1048 CC: [id number] DICTATION DATE: 11/23/17 1531 MANAGER PUBLISHING: 11/23/174 [facility] IN [place] [address] [place] [id number]
[~2017-11-20 11:30] MED LIST changes: -DOXYCYCLINE HY100 M2 PO; -HYDROCODON-ACE1 EAC7 PO; -MAXIPIME 2 GM/D52 G1 IV
[2017-11-20 14:24] VITALS: BP 144/87; BMI 20.8
[2017-11-20 20:03] VITALS: BP 120/77
[2017-11-20 23:36] VITALS: BP 120/68
[2017-11-21 03:24] VITALS: BP 120/77; BMI 20.8
[2017-11-21 04:00] VITALS: BP 108/56
[2017-11-21 08:16] VITALS: BP 128/78
[2017-11-21 11:56] VITALS: BP 131/69
[2017-11-21 13:44] VITALS: Ht 165.1 cm; Wt 56.7 kg
[2017-11-21 16:28] VITALS: BP 109/72
[2017-11-21 20:23] VITALS: BP 96/75
[2017-11-22 04:00] VITALS: BP 126/88
[2017-11-22 08:43] VITALS: BP 126/88
[2017-11-22 11:42] LABS: HEMATOCRIT 34.7 % (36.0-48.0); HEMOGLOBIN 11.1 g/dL (12-16); MCV 87.6 fL (80.0-100.0); MEAN PLATELET VOLUME 8.6 fL (7.4-10.4); RBC 3.96 10x6/uL (4.00-5.40); RDW 14.6 % (11.5-14.5); WBC 8.9 10x3/uL (4.8-10.8)
[2017-11-22 12:08] VITALS: BP 139/85
[2017-11-22 16:23] VITALS: BP 121/84
[2017-11-22 21:03] VITALS: BP 124/84
[2017-11-23 01:06] VITALS: BP 105/62
[2017-11-23 04:00] VITALS: BP 93/60
[2017-11-23 08:52] VITALS: BP 112/77
[2017-11-23 12:09] VITALS: BP 142/82
[2017-11-23 15:57] VITALS: BP 133/79
[2017-11-23 20:00] VITALS: BP 122/64
[2017-11-24 04:00] VITALS: BP 102/66; BP 97/51
[2017-11-24 08:31] VITALS: BP 99/54
[2017-11-24 09:07] LABS: HEMATOCRIT 30.5 % (36.0-48.0); HEMOGLOBIN 9.5 g/dL (12-16); MCH 27.8 pg (26.0-34.0); MCHC 31.1 g/dL (31.0-37.0); MCV 89.2 fL (80.0-100.0); MEAN PLATELET VOLUME 8.5 fL (7.4-10.4); RBC 3.42 10x6/uL (4.00-5.40); RDW 14.4 % (11.5-14.5)
[2017-11-24 09:09] LABS: WBC 6.1 10x3/uL (4.8-10.8)
[2017-11-24 16:13] VITALS: BP 111/62
[2017-11-24 20:00] VITALS: BP 112/69
[2017-11-25 04:00] VITALS: BP 104/55
[2017-11-25 09:19] VITALS: BP 102/62
[2017-11-25 12:16] VITALS: BP 98/56
[2017-11-25 16:16] VITALS: BP 114/60
[2017-11-25 20:00] VITALS: BP 100/55
[2017-11-26 04:00] VITALS: BP 105/64
[2017-11-26 08:55] VITALS: BP 109/65
[2017-11-26 12:52] VITALS: BP 119/81
[2017-11-26 16:20] VITALS: BP 110/61
[2017-11-26 21:15] VITALS: BP 106/53
[2017-11-27 04:41] VITALS: BP 113/69
[2017-11-27] MEDS ORDERED: ELIQUIS2.5 MG PO (07:39)
[2017-11-27] MEDS ORDERED: VALIUM 2 MG TAB2 MG PO (07:39)
[2017-11-27] MEDS ORDERED: DILAUDID4 MG PO (07:40)
[2017-11-27] MEDS ORDERED: HYDROCODON-ACE1 EAC7 PO (07:41)
[2017-11-27] MEDS ORDERED: ZOFRAN ODT4 MG/UDTAB PO (07:42)
[2017-11-27 08:43] VITALS: BP 128/74
== END 2017-11-27 10:40 | disposition home health service (06) | DRG 467 ==
LOC: D.SDCHOLD 11:30 → D.MS 12:15 → D.SDCHOLD 12:15 → D.MS 19:14
PROVIDERS: Orthopaedic Surgery
PROC: 0SRD0J9 Replacement of Left Knee Joint with Synthetic Substitute, Cemented, Open Approach (ICD-10-PCS; 2017-11-20)
PROC: 0SHD08Z Insertion of Spacer into Left Knee Joint, Open Approach (ICD-10-PCS; 2017-11-20)
PROC: 0SPD0JZ Removal of Synthetic Substitute from Left Knee Joint, Open Approach (ICD-10-PCS; principal; 2017-11-20 11:30)
DX: Z47.33 Aftercare following explantation of knee joint prosthesis (principal); D62 Acute posthemorrhagic anemia; D16.22 Benign neoplasm of long bones of left lower limb; F17.200 Nicotine dependence, unspecified, uncomplicated

== ENCOUNTER 2017-12-05 08:33 | Inpatient (IN) | payer MEDICAID ==
[~2017-12-05] VITALS: Ht 166.4 cm; Wt 59.0 kg
[2017-12-05] VITALS (9 sets, daily range): BP systolic 105–122; BP diastolic 69–83; BMI 21.3
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
--- NOTE | ~2017-12-05 | OP ---
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 PROCEDURES: 1. Removal of the entire revision total knee arthroplasty. 2. Placement of antibiotic spacer. SURGEON: Hakeem Renae MD ANESTHESIA: General. INTRAOPERATIVE COMPLICATIONS: Essentially none. SUMMARY OF PATHOLOGIC FINDINGS: Consistent with the prior surgery, the patient had concerns for infection. Indeed, she did grow out Enterobacter cloacae after the original cultures. Given the severity of this organism and the patient's history, I felt like the patient needed to have the hardware removed and have a cement spacer put back in. INDICATIONS: Gregorio Churchill is a 32-year-old female who had to undergo total knee arthroplasty for painful and chondromatosis with fracture. Unfortunately in the postoperative period, she has been very noncompliant including noncompliance with her n.p.o. status at the hospital. She presents today after having a previous I&D with wound VAC placement. OPERATIVE SUMMARY IN DETAIL: After obtaining the appropriate preoperative orthopedic surgery consent as well as anesthetic consultation, evaluation and clearance, the patient was brought to the operating room and placed on the operating table in supine position. After general laryngeal mask airway was administered, a tourniquet placed on the proximal aspect of left lower extremity. Left lower extremity was then prepped and draped in routine sterile fashion. Leg was elevated, tourniquet inflated to 350 mmHg. The patient's range of motion was approximately 10 to 45. Previously placed wound VAC was removed and the leg was prepped and draped as stated above. On evaluation, the paramedian arthrotomy had opened and the patient had clear evidence of infection into the joint itself. For this reason, the decision was made to remove all the hardware. Paramedian arthrotomy was reincised again. The patient's knee was flexed. After substantial mobilization of the quad, the polyethylene was removed followed by removal of the tibial baseplate, which was very stable and not loose at all. The tibial baseplate was removed without substantial bone loss. Attention was then turned to the femur. Flexible osteotomes were utilized to very gently break up the bone cement interface around the large distal femoral augmentation. Eventually, the femur and its intramedullary component removed without substantial bone loss. Please note, the cultures were retaken. After the knee was removed, irrigation and curettage and rongeur removal of all soft tissue was then followed by placement of an antibiotic cement spacer. Paramedian arthrotomy was closed with #2 Ethibond followed by #1 OPERATIVE REPORT [id number] GREGORIO CHURCHILL Vicryl, 2-0 Vicryl and skin monet. Wound VAC was not reapplied. Having completed this, sterile dressings were applied. The tourniquet was deflated. The patient was awakened and taken to the recovery room in stable condition. All final needle and sponge counts were correct. TRANSINT:[id number] Voice Confirmation ID: [id number] DOCUMENT ID: [id number] OC PADGETT, HAKEEM PERDUE at 1358 CC: [id number] DICTATION DATE: 12/12/17 09 ACID CONDENSER: 12/12/17 1205 ADM IN [facility] [address] [place] [address]
[~2017-12-05 08:33] MED LIST changes: +HYDROCODON-ACE1 EAC7 PO
[2017-12-05] MEDS ORDERED: DOXYCYCLINE HY100 M2 PO (08:41)
[2017-12-05 09:36] LABS: APPEARANCE SL CLDY (CLEAR); BILIRUBIN NEGATIVE (NEGATIVE); COLOR YELLOW (YELLOW); GLUCOSE NEGATIVE (NEGATIVE); KETONE NEGATIVE (NEGATIVE); NITRITE NEGATIVE (NEGATIVE); PROTEIN NEGATIVE (NEGATIVE); SPECIFIC GRAVITY 1.005 (1.005-1.020)
[2017-12-05 09:39] LABS: BASOPHILS 0.2 % (0-2); EOSINOPHILS 8.8 % (0-7); HEMATOCRIT 30.2 % (36.0-48.0); HEMOGLOBIN 9.6 g/dL (12-16); IMMATURE GRANULOCYTES 0.4 % (0-5); LYMPHOCYTES 18.2 % (15-50); MCH 28.2 pg (26.0-34.0); MCHC 31.8 g/dL (31.0-37.0); MCV 88.8 fL (80.0-100.0); MEAN PLATELET VOLUME 8.5 fL (7.4-10.4); MONOCYTES 6.3 % (2-11); NEUTROPHILS 66.1 % (40-80); WBC 9.3 10x3/uL (4.8-10.8)
[2017-12-05 09:53] LABS: ALBUMIN 2.2 g/dL (3.4-5.0); ALKALINE PHOSPHATASE 110 U/L (46-116); ALT (SGPT) 14 U/L (10-68); BILIRUBIN - TOTAL 0.16 mg/dL (0.2-1.3); CALC OSMOLALITY 278 mosm/kg (275-300); CALCIUM 7.8 mg/dL (8.5-10.1); CARBON DIOXIDE 26.8 mmol/L (21.0-32.0); CHLORIDE - SERUM 108 mmol/L (98-107); CREATININE - SERUM 0.7 mg/dL (0.6-1.3); POTASSIUM - SERUM 3.9 mmol/L (3.5-5.1); PROTEIN - SERUM 5.9 g/dL (6.4-8.2); SODIUM 139 mmol/L (136-145); UREA NITROGEN 15 mg/dL (7-18); eGFR NON AFRICAN AMERICAN > 90 mL/min (90-120)
[2017-12-05 09:56] LABS: GLUCOSE 97 mg/dL (74-106)
[2017-12-05 10:11] LABS: PLATELET COUNT 435 10x3/uL (130-400)
[2017-12-05 12:18] LABS: ERYTHROCYTE SEDIMENTATION RATE 20 mm/hr (0-20)
[2017-12-06 09:00] VITALS: BP 135/72
[2017-12-06 10:02] LABS: HEMOGLOBIN 9.9 g/dL (12-16); MCHC 30.9 g/dL (31.0-37.0); MCV 90.7 fL (80.0-100.0); MEAN PLATELET VOLUME 8.4 fL (7.4-10.4); RBC 3.53 10x6/uL (4.00-5.40); RDW 14.9 % (11.5-14.5); WBC 8.7 10x3/uL (4.8-10.8)
[2017-12-06 10:13] LABS: CALC OSMOLALITY 276 mosm/kg (275-300); CALCIUM 7.7 mg/dL (8.5-10.1); CARBON DIOXIDE 30.7 mmol/L (21.0-32.0); CHLORIDE - SERUM 106 mmol/L (98-107); CREATININE - SERUM 0.7 mg/dL (0.6-1.3); GLUCOSE 96 mg/dL (74-106); POTASSIUM - SERUM 3.7 mmol/L (3.5-5.1); SODIUM 140 mmol/L (136-145); eGFR NON AFRICAN AMERICAN > 90 mL/min (90-120)
[2017-12-06 10:24] LABS: UREA NITROGEN 6 mg/dL (7-18)
[2017-12-06 11:45] VITALS: BP 97/66
[2017-12-06 20:00] VITALS: BP 83/49
[2017-12-07 04:00] VITALS: BP 93/54
[2017-12-07 06:54] LABS: HEMATOCRIT 29.4 % (36.0-48.0); MCH 27.6 pg (26.0-34.0); MCHC 30.6 g/dL (31.0-37.0); MCV 90.2 fL (80.0-100.0); MEAN PLATELET VOLUME 8.5 fL (7.4-10.4); PLATELET COUNT 390 10x3/uL (130-400); RBC 3.26 10x6/uL (4.00-5.40); RDW 14.8 % (11.5-14.5); WBC 7.5 10x3/uL (4.8-10.8)
[2017-12-07 07:14] LABS: C-REACTIVE PROTEIN 1.4 mg/dL (0.0-0.9); CALC OSMOLALITY 275 mosm/kg (275-300); CALCIUM 7.3 mg/dL (8.5-10.1); CARBON DIOXIDE 29.8 mmol/L (21.0-32.0); CHLORIDE - SERUM 108 mmol/L (98-107); CREATININE - SERUM 0.8 mg/dL (0.6-1.3); GLUCOSE 89 mg/dL (74-106); POTASSIUM - SERUM 3.9 mmol/L (3.5-5.1); SODIUM 140 mmol/L (136-145); UREA NITROGEN 6 mg/dL (7-18); eGFR NON AFRICAN AMERICAN 89 mL/min (90-120)
[2017-12-07 08:15] LABS: ERYTHROCYTE SEDIMENTATION RATE 12 mm/hr (0-20)
[2017-12-07 09:08] VITALS: BP 92/56
[2017-12-07 20:00] VITALS: BP 121/67
[2017-12-08] VITALS: BP 105/60
[2017-12-08 04:00] VITALS: BP 108/61
[2017-12-08 09:03] VITALS: BP 98/55
[2017-12-08 14:38] VITALS: BP 124/81
[2017-12-08 20:00] VITALS: BP 118/78
[2017-12-09 04:00] VITALS: BP 98/60
[2017-12-09 06:51] VITALS: BP 96/61
[2017-12-09 12:49] VITALS: BP 102/65
[2017-12-09 20:00] VITALS: BP 103/64
[2017-12-10] VITALS: BP 102/48
[2017-12-10 04:00] VITALS: BP 96/53
[2017-12-10 11:28] VITALS: BP 111/69
[2017-12-10 15:43] VITALS: BP 128/75
[2017-12-10 21:04] VITALS: BP 119/64
[2017-12-11 04:00] VITALS: BP 98/57
[2017-12-11 08:57] VITALS: BP 95/59
[2017-12-11 13:24] VITALS: BP 101/62
[2017-12-11 20:30] VITALS: BP 130/88
[2017-12-12 04:56] VITALS: BP 119/76
[2017-12-12 09:10] VITALS: BP 151/75
[2017-12-12 10:45] LABS: HEMATOCRIT 29.2 % (36.0-48.0); HEMOGLOBIN 9.3 g/dL (12-16); MCH 27.5 pg (26.0-34.0); MCHC 31.8 g/dL (31.0-37.0); MCV 86.4 fL (80.0-100.0); RBC 3.38 10x6/uL (4.00-5.40); RDW 14.5 % (11.5-14.5); WBC 10.8 10x3/uL (4.8-10.8)
[2017-12-12 10:57] LABS: CALC OSMOLALITY 263 mosm/kg (275-300); CARBON DIOXIDE 28.5 mmol/L (21.0-32.0); CHLORIDE - SERUM 100 mmol/L (98-107); CREATININE - SERUM 0.8 mg/dL (0.6-1.3); GLUCOSE 97 mg/dL (74-106); POTASSIUM - SERUM 3.8 mmol/L (3.5-5.1); SODIUM 133 mmol/L (136-145); UREA NITROGEN 7 mg/dL (7-18); eGFR NON AFRICAN AMERICAN 89 mL/min (90-120)
[2017-12-12 13:39] VITALS: BP 130/70
[2017-12-12 14:03] VITALS: Ht 166.4 cm; Wt 59.0 kg
[2017-12-12 17:34] VITALS: BP 114/71
[2017-12-12 20:00] VITALS: BP 120/77
[2017-12-13 03:44] VITALS: BP 113/68
[2017-12-13 07:02] LABS: CALC OSMOLALITY 267 mosm/kg (275-300); CALCIUM 7.9 mg/dL (8.5-10.1); CARBON DIOXIDE 28.6 mmol/L (21.0-32.0); CHLORIDE - SERUM 103 mmol/L (98-107); CREATININE - SERUM 0.7 mg/dL (0.6-1.3); GLUCOSE 101 mg/dL (74-106); POTASSIUM - SERUM 3.9 mmol/L (3.5-5.1); SODIUM 135 mmol/L (136-145); UREA NITROGEN 7 mg/dL (7-18); eGFR NON AFRICAN AMERICAN > 90 mL/min (90-120)
[2017-12-13 07:23] LABS: HEMATOCRIT 26.6 % (36.0-48.0); HEMOGLOBIN 8.4 g/dL (12-16); MCH 27.5 pg (26.0-34.0); MCHC 31.6 g/dL (31.0-37.0); MCV 87.2 fL (80.0-100.0); MEAN PLATELET VOLUME 8.3 fL (7.4-10.4); RBC 3.05 10x6/uL (4.00-5.40); RDW 14.7 % (11.5-14.5); WBC 8.1 10x3/uL (4.8-10.8)
[2017-12-13 09:53] VITALS: BP 109/63
[2017-12-13 13:08] VITALS: BP 105/65
[2017-12-13 20:00] VITALS: BP 109/86
[2017-12-14 04:00] VITALS: BP 95/53
[2017-12-14] MEDS ORDERED: MAXIPIME 2 GM/D52 G1 IV (08:17)
[2017-12-14 08:47] VITALS: BP 120/70
[2017-12-14 10:25] LABS: BASOPHILS 0.4 % (0-2); EOSINOPHILS 17.4 % (0-7); HEMATOCRIT 29.5 % (36.0-48.0); HEMOGLOBIN 9.5 g/dL (12-16); IMMATURE GRANULOCYTES 0.4 % (0-5); LYMPHOCYTES 16.1 % (15-50); MCH 28.2 pg (26.0-34.0); MCHC 32.2 g/dL (31.0-37.0); MCV 87.5 fL (80.0-100.0); MEAN PLATELET VOLUME 8.3 fL (7.4-10.4); MONOCYTES 7.7 % (2-11); PLATELET COUNT 304 10x3/uL (130-400); RBC 3.37 10x6/uL (4.00-5.40); RDW 14.5 % (11.5-14.5); WBC 7.9 10x3/uL (4.8-10.8)
[2017-12-14 10:40] LABS: C-REACTIVE PROTEIN 6.4 mg/dL (0.0-0.9); CALC OSMOLALITY 267 mosm/kg (275-300); CALCIUM 8.4 mg/dL (8.5-10.1); CARBON DIOXIDE 34.1 mmol/L (21.0-32.0); CHLORIDE - SERUM 99 mmol/L (98-107); CREATININE - SERUM 0.7 mg/dL (0.6-1.3); GLUCOSE 83 mg/dL (74-106); POTASSIUM - SERUM 3.9 mmol/L (3.5-5.1); SODIUM 135 mmol/L (136-145); eGFR NON AFRICAN AMERICAN > 90 mL/min (90-120)
[2017-12-14 10:43] LABS: UREA NITROGEN 9 mg/dL (7-18)
[2017-12-14 11:40] LABS: ERYTHROCYTE SEDIMENTATION RATE 60 mm/hr (0-20)
== END 2017-12-14 15:27 | disposition short-term general hospital (02) | DRG 464 ==
LOC: D.ER 08:33 → D.EDHOLD 14:14 → D.MS 14:14
PROVIDERS: Emergency Medicine; Orthopaedic Surgery; Student in an Organized Health Care Education/Training Program
PROC: 0JBP0ZZ Excision of Left Lower Leg Subcutaneous Tissue and Fascia, Open Approach (ICD-10-PCS; principal; 2017-12-08 13:00)
PROC: 0SHD08Z Insertion of Spacer into Left Knee Joint, Open Approach (ICD-10-PCS; 2017-12-11)
PROC: 0SPD0JZ Removal of Synthetic Substitute from Left Knee Joint, Open Approach (ICD-10-PCS; 2017-12-11 14:45)
DX: T84.54XA Infection and inflammatory reaction due to internal left knee prosthesis, initial encounter (principal); L03.116 Cellulitis of left lower limb; K21.9 Gastro-esophageal reflux disease without esophagitis; F41.9 Anxiety disorder, unspecified; F43.10 Post-traumatic stress disorder, unspecified; B96.89 Other specified bacterial agents as the cause of diseases classified elsewhere; Z91.19 Patient's noncompliance with other medical treatment and regimen; F31.9 Bipolar disorder, unspecified; D64.9 Anemia, unspecified; D16.22 Benign neoplasm of long bones of left lower limb; F17.200 Nicotine dependence, unspecified, uncomplicated

== ENCOUNTER → 2018-01-09 16:53 | Outpatient (CLI) | payer MEDICAID ==
[2017-12-12 14:03] VITALS: BMI 21.3
[~2018-01-09 16:53] MED LIST changes: +DOXYCYCLINE HY100 M2 PO; +MAXIPIME 2 GM/D52 G1 IV
[2018-01-09 19:08] LABS: BASOPHILS 0.2 % (0-2); EOSINOPHILS 5.5 % (0-7); HEMATOCRIT 38.2 % (36.0-48.0); HEMOGLOBIN 12.3 g/dL (12-16); IMMATURE GRANULOCYTES 0.1 % (0-5); LYMPHOCYTES 24.7 % (15-50); MCHC 32.2 g/dL (31.0-37.0); MCV 86.8 fL (80.0-100.0); MEAN PLATELET VOLUME 9.5 fL (7.4-10.4); MONOCYTES 10.9 % (2-11); NEUTROPHILS 58.6 % (40-80); PLATELET COUNT 319 10x3/uL (130-400); RDW 14.3 % (11.5-14.5); WBC 8.9 10x3/uL (4.8-10.8)
[2018-01-09 19:23] LABS: CALC OSMOLALITY 282 mosm/kg (275-300); CALCIUM 8.9 mg/dL (8.5-10.1); CARBON DIOXIDE 26.6 mmol/L (21.0-32.0); CHLORIDE - SERUM 103 mmol/L (98-107); CREATININE - SERUM 0.8 mg/dL (0.6-1.3); GLUCOSE 92 mg/dL (74-106); POTASSIUM - SERUM 3.5 mmol/L (3.5-5.1); SODIUM 142 mmol/L (136-145); UREA NITROGEN 13 mg/dL (7-18); eGFR NON AFRICAN AMERICAN 89 mL/min (90-120)
[2018-01-09 20:42] LABS: ERYTHROCYTE SEDIMENTATION RATE 5 mm/hr (0-20)
== END | disposition home or self-care (01) ==
LOC: D.LABREF 16:53
PROVIDERS: Clinical Nurse Specialist Family Health
DX: T84.89XA Other specified complication of internal orthopedic prosthetic devices, implants and grafts, initial encounter (principal)

== ENCOUNTER 2018-08-02 13:00 | Inpatient (IN) | payer MEDICAID ==
[~2018-08-02] VITALS: Ht 165.1 cm; Wt 56.8 kg
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
[2018-08-30] MEDS ORDERED: PERCOCET 10-321 EAC1 PO (11:05)
[2018-08-30 11:56] LABS: APPEARANCE CLEAR (CLEAR); BILIRUBIN NEGATIVE (NEGATIVE); COLOR YELLOW (YELLOW); GLUCOSE NEGATIVE (NEGATIVE); KETONE NEGATIVE (NEGATIVE); NITRITE NEGATIVE (NEGATIVE); PROTEIN NEGATIVE (NEGATIVE); UROBILINOGEN NORMAL (NORMAL)
[2018-08-30 12:19] LABS: BASOPHILS 0 % (0-2); EOSINOPHILS 3.3 % (0-7); HEMATOCRIT 39.3 % (36.0-48.0); HEMOGLOBIN 12.7 g/dL (12-16); IMMATURE GRANULOCYTES 0.3 % (0-5); LYMPHOCYTES 26.6 % (15-50); MCH 30.1 pg (26.0-34.0); MCHC 32.3 g/dL (31.0-37.0); MCV 93.1 fL (80.0-100.0); MEAN PLATELET VOLUME 8.7 fL (7.4-10.4); MONOCYTES 6.1 % (2-11); NEUTROPHILS 63.7 % (40-80); PLATELET COUNT 265 10x3/uL (130-400); RBC 4.22 10x6/uL (4.00-5.40); RDW 13.8 % (11.5-14.5); WBC 7.9 10x3/uL (4.8-10.8)
[2018-08-30 12:25] LABS: CALC OSMOLALITY 274 mosm/kg (275-300); CALCIUM 8.7 mg/dL (8.5-10.1); CARBON DIOXIDE 30.2 mmol/L (21.0-32.0); CHLORIDE - SERUM 102 mmol/L (98-107); CREATININE - SERUM 0.8 mg/dL (0.6-1.3); GLUCOSE 77 mg/dL (74-106); POTASSIUM - SERUM 3.8 mmol/L (3.5-5.1); SODIUM 138 mmol/L (136-145); UREA NITROGEN 13 mg/dL (7-18); eGFR NON AFRICAN AMERICAN 88 mL/min (90-120)
[2018-08-30 12:51] LABS: APTT 26.1 SECONDS (22.8-39.4); INR 0.9 (0.85-1.17)
[2018-09-03 11:47] VITALS: BP 127/81; BMI 20.8
[2018-09-03 18:14] VITALS: BP 110/75
[2018-09-03 18:15] VITALS: BP 110/75
[2018-09-03 18:32] VITALS: BP 110/75; Ht 165.1 cm; Wt 56.8 kg
[2018-09-03 18:45] VITALS: BP 120/74
--- NOTE | 2018-09-03 20:00 | NUR ---
PT LYING IN BED RESTING, NO SIGNS OF DISTRESS. ALERT AND ORIENTED. LEFT LEG IN IMMOBILIZER. ICE PACK TO LEG. IV LEFT HAND INFUSING 1/2 NS @ 100. STATES PAIN 10. SCD TO RIGHT LEG, PLEXI TO LEFT FOOT. BED ALARM ON. WILL CONT TO MONITOR
[2018-09-03 21:24] VITALS: BP 118/79
[2018-09-03] MEDS ORDERED: VALIUM 2 MG TAB2 MG PO (22:38)
[2018-09-04 01:28] VITALS: BP 106/67
[2018-09-04 05:34] VITALS: BP 106/73
[2018-09-04 06:47] LABS: HEMATOCRIT 34.4 % (36.0-48.0); HEMOGLOBIN 11.3 g/dL (12-16); MCH 29.6 pg (26.0-34.0); MCHC 32.8 g/dL (31.0-37.0); MCV 90.1 fL (80.0-100.0); MEAN PLATELET VOLUME 8.7 fL (7.4-10.4); RBC 3.82 10x6/uL (4.00-5.40); RDW 13.5 % (11.5-14.5); WBC 10.7 10x3/uL (4.8-10.8)
[2018-09-04 09:10] VITALS: BP 107/68
--- NOTE | 2018-09-04 09:43 | NUR ---
PT UPSET ABOUT PAIN MEDS SHE STATES "OLIVA THE MEDIEVAL ENGLISH LITERATURE PROFESSOR FOR [employer] TOLD HER SHE WOULD START SOME DILAUDID FOR HER" I EXPRESSED TO THE PT THOSE ORDERS WERE NOT PUT IN THE COMPUTER I WOULD CALL OLIVA AND VERIFY PT THEN STATES "YOU TELL OLIVA IF SHE DOES NOT GET ME SOMETHING ELSE FOR PAIN I AM WALKING UP OUT OF HERE" I CALLED OLIVA AND TOLD HER WHAT THE PT STATED OLIVA THEN STATED "I TOLD THE PT THAT I WOULD TALK TO DR RENAE AND SHE SAID SAID TO LEAVE THE PT ON WHAT SHE IS ON RIGHT NOW WHICH IS THE [id number] Q4 AND VALIUM Q8"
--- NOTE | 2018-09-04 09:57 | NUR ---
DIANA BAPTISTE CALLED AND STATED "SHE SPOKE WITH AGAIN AND HE SAID THE PT CAN HAVE O.5MG OF DILAUDID IV Q6 FOR BREAKTHROUGH PAIN"
--- NOTE | 2018-09-04 11:20 | NUR ---
PT RESTING AT THIS TIME EYES CLOSED NO SIGNS OF DISTRESS NOTED, CL IN REACH
--- NOTE | 2018-09-04 12:04 | NUR ---
PT SISTER IN LAW AT THE NURSES STATION APOLIZING FOR HOW THE PT IS ACTING, AT THIS TIME I AM ON MY WAY TO THE PT ROOM TO GIVE HER VALIUM BECAUSE IT IS TIME FOR HER TO HAVE IT, PT STATES SHE WANTS TO TALK TO THE SUPERVISON I EXPRESSED TO THE PT THAT I WOULD LET HER KNOW SHE WANTED TO SPEAK TO HER
--- NOTE | 2018-09-04 13:00 | NUR ---
PT RESTING EYES CLOSED AT THIS TIME NO SIGNS OF DISTRESS NOTED, FAMILY AT BEDSIDE AND REQUESTING FOR STAFF TO NOT BOTHER PT AT THIS TIME
--- NOTE | 2018-09-04 18:46 | NUR ---
I have reviewed this patient and I concur with the Shift Assessment completed by the Licensed Practical Nurse today this shift.
--- NOTE | 2018-09-04 19:35 | NUR ---
PT LYING IN BED, NO SIGNS OF DISTRESS. ALERT AND ORIENTED. STATES PAIN 8/10. WILL GIVE PAIN MEDS ORDERED. DENIES OTHER NEEDS. LEFT LEG IN IMMOBILIZER. LEFT FOOT SWOLLEN, PEDAL PULSE STRONG. ICE PACK APPLIED TO FOOT. IV LEFT HAND SL, NO REDNESS OR SWELLING AT INSERTION SITE. BED ALARM ON. SCDS ON. FAMILY AT BEDSIDE. CL IN REACH, WILL CONT TO MONITOR
[2018-09-04 20:57] VITALS: BP 120/88
[2018-09-05 01:42] VITALS: BP 110/68
[2018-09-05 05:24] VITALS: BP 118/68
[2018-09-05 07:05] LABS: HEMATOCRIT 31.6 % (36.0-48.0); HEMOGLOBIN 10.5 g/dL (12-16); MCH 29.7 pg (26.0-34.0); MCHC 33.2 g/dL (31.0-37.0); MCV 89.3 fL (80.0-100.0); MEAN PLATELET VOLUME 8.6 fL (7.4-10.4); RBC 3.54 10x6/uL (4.00-5.40); RDW 13.4 % (11.5-14.5); WBC 11.2 10x3/uL (4.8-10.8)
[2018-09-05 08:56] VITALS: BP 116/93
--- NOTE | 2018-09-05 12:40 | MORECARE ---
CASE MANAGEMENT DISCHARGE SUMMARY PATIENT: GREGORIO MORALES UNIT: [id number] ADM DATE: 09/03/18 AGE: 33 : 86 SEX: F ROOM/BED: D.2210 AUTHOR: ZITA,DOC PHYSICIAN: REFERRING PHYSICIAN: HAKEEM RENAE MD DATE OF SERVICE: 09/05/18 Discharge Plan Patient Name: GREGORIO MORALES Facility: [facility]:[place] : 1985 Planned Disposition: Home Health Service Anticipated Discharge Date: Discharge Date: Expected LOS: Initial Reviewer: [id number] Initial Review Date: 09/03/2018 Generated: 09/05/18 1:40 pm Comments DCP- Discharge Planning Updated by [email or web address]: Vandana Valladares on 09/05/18 11:[address] Patient Name: GREGORIO MORALES Admission Status: Elective Accout number: [id number] Admission Date: 09-03-2018 : 1985 Admission Diagnosis: Attending: HAKEEM RENAE Current LOS: 2 Anticipated DC Date: Planned Disposition: Home Health Service Primary Insurance: MEDICAID [place] Discharge Planning Comments: CM met with patient to complete initial dc planning assessment. CM educated patient on the CM role and verbal consent given by patient to complete assessment. Patient lives at home with her brother and sister in law where she is independent with her care. At discharge patient plans to return home and feels this is a safe discharge. Her sister in law Ela will be her steam train driver home. CM discussed availability of home health, rehab services, and medical equipment. She would like home health at discharge, [facility] with [facility]. She also stated that she will need a walker. She does not have one anymore. I explained to her that her insurance may not pay for it if she has had one in the past 5 years and she stated she has not. ERICH with [facility]. Patient denied known discharge needs at this time. CM will continue to follow and will assist as needed with dc plans/needs. Neurology Specialist: Vandana Valladares DCPIA - Discharge Planning Initial Assessment Updated by [email or web address]: Vandana Valladares on 09/05/18 12:35 pm * Is the patient Alert and Oriented? Yes * PCP KATELYN * Pharmacy [facility] * Preadmission Environment Home with Family * ADLs Independent * Equipment None * List name and contact numbers for known caregivers / representatives who currently or will assist patient after discharge: MAHESH SUÁREZ [phone] * Verbal permission to speak to the caregivers and representatives has been obtained from the patient. N/A * Community resources currently utilized None * Additional services required to return to the preadmission environment? Yes * Can the patient safely return to the preadmission environment? Yes * Has this patient been hospitalized within the prior 30 days at any hospital? No Coverage Notice Reviewer: [id number] Lalo Valladares Notice Issued Date-Time: 09/05/2018 12:00 Notice Type: Patient Choice Letter Notice Delivered To: Patient Relationship to Patient: Salesperson Fashion Accessories Name: Delivery Method: - Arti Days: Prior Verbal Notification: Recipient Understood Notice: Yes Recipient Signature: Yes Med Rec Note Co-signed by Attending: Coverage Notice Comment: Patient Name: GREGORIO MORALES Page 18095 at 1240 All edits/amendments must be made on the electronic document DICTATION DATE: 09/05/18 1239 REACTOR TECHNICIAN: CHAUNCEY 09/05/18 1239 RPT#: [id number] DC DATE: STATUS: ADM IN [facility] [address] [place] [address] END OF REPORT
--- NOTE | 2018-09-05 12:58 | MORECARE ---
CASE MANAGEMENT DISCHARGE SUMMARY PATIENT: GREGORIO MORALES UNIT: [id number] ADM DATE: 09/03/18 AGE: 33 : 86 SEX: F ROOM/BED: D.2210 AUTHOR: ZITA,DOC PHYSICIAN: REFERRING PHYSICIAN: HAKEEM RENAE MD DATE OF SERVICE: 09/05/18 Discharge Plan Patient Name: GREGORIO MORALES Facility: [facility]:[place] : 1985 Planned Disposition: Home Health Service Anticipated Discharge Date: Discharge Date: Expected LOS: Initial Reviewer: [email or web address] Initial Review Date: 09/03/2018 Generated: 09/05/18 1:58 pm Comments DCP- Discharge Planning Updated by [id number]: Vandana Valladares on 09/05/18 11:[address] REFERRAL SENT TO [facility] DCP- Discharge Planning Updated by [email or web address]: Vandana Valladares on 09/05/18 11:[address] Patient Name: GREGORIO MORALES Admission Status: Elective Accout number: [id number] Admission Date: 09-03-2018 : 1985 Admission Diagnosis: Attending: HAKEEM RENAE Current LOS: 2 Anticipated DC Date: Planned Disposition: Home Health Service Primary Insurance: MEDICAID [place] Discharge Planning Comments: CM met with patient to complete initial dc planning assessment. CM educated patient on the CM role and verbal consent given by patient to complete assessment. Patient lives at home with her brother and sister in law where she is independent with her care. At discharge patient plans to return home and feels this is a safe discharge. Her sister in law Ela will be her otr refrigerated cdl truck driver home. CM discussed availability of home health, rehab services, and medical equipment. She would like home health at discharge, [facility] with [facility]. She also stated that she will need a walker. She does not have one anymore. I explained to her that her insurance may not pay for it if she has had one in the past 5 years and she stated she has not. ERICH with [facility]. Patient denied known discharge needs at this time. CM will continue to follow and will assist as needed with dc plans/needs. Culinary Artist: Vandana Valladares DCPIA - Discharge Planning Initial Assessment Updated by [email or web address]: Vandana Valladares on 09/05/18 12:35 pm * Is the patient Alert and Oriented? Yes * PCP KATELYN * Pharmacy [facility] * Preadmission Environment Home with Family * ADLs Independent * Equipment None * List name and contact numbers for known caregivers / representatives who currently or will assist patient after discharge: MAHESH SUÁREZ [phone] * Verbal permission to speak to the caregivers and representatives has been obtained from the patient. N/A * Community resources currently utilized None * Additional services required to return to the preadmission environment? Yes * Can the patient safely return to the preadmission environment? Yes * Has this patient been hospitalized within the prior 30 days at any hospital? No External Providers External Provider: [facility] Next Contact Date: Service Request Date: Service Type: Resolution: Reviewer: Comments: External Provider: [facility] Next Contact Date: Service Request Date: Service Type: Resolution: Reviewer: Comments: Coverage Notice Reviewer: [id number] - Vandana Valladares Notice Issued Date-Time: 09/05/2018 12:00 Notice Type: Patient Choice Letter Notice Delivered To: Patient Relationship to Patient: Mason Tender Restoration Labor Name: Delivery Method: - Arti Days: Prior Verbal Notification: Recipient Understood Notice: Yes Recipient Signature: Yes Med Rec Note Co-signed by Attending: Coverage Notice Comment: Last DP export: 09/05/18 11:40 a Patient Name: GREGORIO MORALES Page 52634 at 1258 All edits/amendments must be made on the electronic document DICTATION DATE: 09/05/18 1257 FOOD MANAGER: CHAUNCEY 09/05/18 1257 RPT#: [id number] DC DATE: STATUS: ADM IN [facility] [address] [place] [address] END OF REPORT
[2018-09-05 13:26] VITALS: BP 137/86
--- NOTE | 2018-09-05 13:56 | MORECARE ---
CASE MANAGEMENT DISCHARGE SUMMARY PATIENT: GREGORIO MORALES UNIT: [id number] ADM DATE: 09/03/18 AGE: 33 : 87 SEX: F ROOM/BED: D.2210 AUTHOR: ZITA,DOC PHYSICIAN: REFERRING PHYSICIAN: HAKEEM RENAE MD DATE OF SERVICE: 09/05/18 Discharge Plan Patient Name: GREGORIO MORALES Facility: [facility]:[place] : 1985 Planned Disposition: Home Health Service Anticipated Discharge Date: Discharge Date: Expected LOS: Initial Reviewer: [email or web address] Initial Review Date: 09/03/2018 Generated: 09/05/18 2:56 pm Comments DCP- Discharge Planning Updated by [email or web address]: Vandana Valladares on 09/05/18 12:[address] [facility] called and stated that she is noncompliant and will not be able to accept her DCP- Discharge Planning Updated by [email or web address]: Vandana Valladares on 09/05/18 11:[address] REFERRAL SENT TO [facility] IV DCP- Discharge Planning Updated by [email or web address]: Vandana Valladares on 09/05/18 11:[address] Patient Name: GREGORIO MORALES Admission Status: Elective Accout number: [id number] Admission Date: 09-03-2018 : 1985 Admission Diagnosis: Attending: HAKEEM RENAE Current LOS: 2 Anticipated DC Date: Planned Disposition: Home Health Service Primary Insurance: MEDICAID [place] Discharge Planning Comments: CM met with patient to complete initial dc planning assessment. CM educated patient on the CM role and verbal consent given by patient to complete assessment. Patient lives at home with her brother and sister in law where she is independent with her care. At discharge patient plans to return home and feels this is a safe discharge. Her sister in law Ela will be her tow car driver home. CM discussed availability of home health, rehab services, and medical equipment. She would like home health at discharge, [facility] with [facility]. She also stated that she will need a walker. She does not have one anymore. I explained to her that her insurance may not pay for it if she has had one in the past 5 years and she stated she has not. ERICH with [facility]. Patient denied known discharge needs at this time. CM will continue to follow and will assist as needed with dc plans/needs. Supervisor Scrap Preparation: Vandana Valladares DCPIA - Discharge Planning Initial Assessment Updated by [email or web address]: Vandana Valladares on 09/05/18 12:35 pm * Is the patient Alert and Oriented? Yes * PCP [email or web address] * Pharmacy [facility] * Preadmission Environment Home with Family * ADLs Independent * Equipment None * List name and contact numbers for known caregivers / representatives who currently or will assist patient after discharge: MAHESH SUÁREZ [phone] * Verbal permission to speak to the caregivers and representatives has been obtained from the patient. N/A * Community resources currently utilized None * Additional services required to return to the preadmission environment? Yes * Can the patient safely return to the preadmission environment? Yes * Has this patient been hospitalized within the prior 30 days at any hospital? No Coverage Notice Reviewer: [id number] - Vandana Valladares Notice Issued Date-Time: 09/05/2018 12:00 Notice Type: Patient Choice Letter Notice Delivered To: Patient Relationship to Patient: Special Librarian Name: Delivery Method: - Arti Days: Prior Verbal Notification: Recipient Understood Notice: Yes Recipient Signature: Yes Med Rec Note Co-signed by Attending: Coverage Notice Comment: Last DP export: 09/05/18 11:58 a Patient Name: GREGORIO MORALES Page 95438 at 1356 All edits/amendments must be made on the electronic document DICTATION DATE: 09/05/18 1356 INDUSTRIAL SAFETY AND HEALTH SPECIALIST: CHAUNCEY 09/05/18 1356 RPT#: [id number] DC DATE: STATUS: ADM IN [facility] [address] [place] [address] END OF REPORT
--- NOTE | 2018-09-05 16:08 | NUR ---
PATIENT STATED HER LEG IS MORE SWOLLEN. DOPPLER CHECKED BY RASHEED DALEY. POSITIVE PULSE AT THIS TIME. ELEVATED LEG ABOVE HEART AND ICE PLACED OVER ANKLE AND FOOT. PAGED OLIVA ORTIZ. PATIENT CALL LIGHT WITHIN REACH.
--- NOTE | 2018-09-05 16:47 | NUR ---
NEW ORDERS RECIEVED FOR LLE VENOUS DOPPLER.
[2018-09-05 17:25] VITALS: BP 132/86
--- NOTE | 2018-09-05 18:50 | NUR ---
PATIENT IN BED WITH IV INTACT. NO COMPLAINTS, CALL LIGHT WITHIN REACH.
[2018-09-05 20:00] VITALS: BP 137/86
--- NOTE | 2018-09-05 20:00 | NUR ---
LYING IN BED WITH EYES CLOSED. RESP SHALLOW, NONLABORED. BBS CTA. DRSG NOTED TO LT KNEE WITH IMMOBILIZER IN USE. 2+ EDEMA NOTED TO LT FOOT. PLEXIPULSE NOTED TO LT FOOT. SCD NOTED TO RLE. PT IS SEDATED. FAMILY AT BEDSIDE. SALINE LOCK NOTED TO LT HAND. NO DISTRESS. SR ELEVATED X2. CL IN REACH.
--- NOTE | 2018-09-05 21:05 | NUR ---
C/O PAIN IN LT KNEE. MEDICATED WITH PERCOCET. FAMILY AT BEDSIDE. SITTING UP IN BED EATING. CL IN REACH. ALERT AND ORIENTED X4. IRRITABLE AND DEMANDING. ICE PLACED ON LT ANKLE AND KNEE.
--- NOTE | 2018-09-05 23:45 | NUR ---
REQUESTS DILAUDID. MEDICATED WITH DILAUDID AT THIS TIME FOR C/O PAIN IN LT KNEE RATING 10. CL IN REACH.
[2018-09-06] VITALS: BP 125/77
--- NOTE | 2018-09-06 00:15 | NUR ---
STATES SUDEEP MICHAELS HELPED PAIN IN LT KNEE. ASKING ABOUT VALIUM NOW. INFORMED PT THAT SHE WOULD HAVE TO WAIT AN HOUR BEFORE SHE COULD RECEIVE THE VALIUM.
--- NOTE | 2018-09-06 02:40 | NUR ---
REQUESTED PERCOCET. MEDICATED WITH PERCOCET ORDERED FOR C/O PAIN RATING 9 IN LT KNEE. ICE PACKS APPLIED TO LT KNEE AND LT ANKLE. CL IN REACH.
--- NOTE | 2018-09-06 03:56 | NUR ---
MEDICATED WITH VALIUM FOR C/O ANXIETY. SITTING UP IN BED EATING AND DRINKING. CL IN REACH.
[2018-09-06 04:00] VITALS: BP 113/71
[2018-09-06 08:15] VITALS: BP 125/77
--- NOTE | 2018-09-06 12:02 | MORECARE ---
CASE MANAGEMENT DISCHARGE SUMMARY PATIENT: GREGORIO MORALES UNIT: [id number] ADM DATE: 09/03/18 AGE: 33 : 86 SEX: F ROOM/BED: D.2210 AUTHOR: ZITA,DOC PHYSICIAN: REFERRING PHYSICIAN: HAKEEM RENAE MD DATE OF SERVICE: 09/06/18 Discharge Plan Patient Name: GREGORIO MORALES Facility: [facility]:[place] : 1985 Planned Disposition: Home Health Service Anticipated Discharge Date: Discharge Date: Expected LOS: Initial Reviewer: [email or web address] Initial Review Date: 09/03/2018 Generated: 09/06/18 1:02 pm Comments DCP- Discharge Planning Updated by [email or web address]: Vandana Valladares on 09/06/18 10:[address] [facility] DCP- Discharge Planning Updated by [id number]: Vandana Valladares on 09/06/18 10:[address] spoke with J[facility] GALLEGOS and they do not have any openings for patient, [facility] tried to admit her last year and was unsuccessful due to noncompliance, but will give her another try this time. Spoke with Marisela and faxed clinicals over. DCP- Discharge Planning Updated by [email or web address]: Vandana Valladares on 09/05/18 12:[address] [facility] called and stated that she is noncompliant and will not be able to accept her DCP- Discharge Planning Updated by [id number]: Vandana Valladares on 09/05/18 11:[address] REFERRAL SENT TO [facility] DCP- Discharge Planning Updated by [email or web address]: Vandana Valladares on 09/05/18 11:[address] Patient Name: GREGORIO MORALES Admission Status: Elective Accout number: [id number] Admission Date: 09-03-2018 : 1985 Admission Diagnosis: Attending: HAKEEM RENAE Current LOS: 2 Anticipated DC Date: Planned Disposition: Home Health Service Primary Insurance: MEDICAID [place] Discharge Planning Comments: CM met with patient to complete initial dc planning assessment. CM educated patient on the CM role and verbal consent given by patient to complete assessment. Patient lives at home with her brother and sister in law where she is independent with her care. At discharge patient plans to return home and feels this is a safe discharge. Her sister in law Ela will be her equipment driver home. CM discussed availability of home health, rehab services, and medical equipment. She would like home health at discharge, [facility]. She also stated that she will need a walker. She does not have one anymore. I explained to her that her insurance may not pay for it if she has had one in the past 5 years and she stated she has not. ERICH with [facility]. Patient denied known discharge needs at this time. CM will continue to follow and will assist as needed with dc plans/needs. Ditcher: Vandana Valladares DCPIA - Discharge Planning Initial Assessment Updated by [email or web address]: Vandana Valladares on 09/05/18 12:35 pm * Is the patient Alert and Oriented? Yes * PCP KATELYN * Pharmacy [facility] * Preadmission Environment Home with Family * ADLs Independent * Equipment None * List name and contact numbers for known caregivers / representatives who currently or will assist patient after discharge: MAHESH SUÁREZ [phone] * Verbal permission to speak to the caregivers and representatives has been obtained from the patient. N/A * Community resources currently utilized None * Additional services required to return to the preadmission environment? Yes * Can the patient safely return to the preadmission environment? Yes * Has this patient been hospitalized within the prior 30 days at any hospital? No External Providers [facility] Next Contact Date: Service Request Date: Service Type: Resolution: Reviewer: Comments: Coverage Notice Reviewer: [id number] - Vandana Valladares Notice Issued Date-Time: 09/05/2018 12:00 Notice Type: Patient Choice Letter Notice Delivered To: Patient Relationship to Patient: Technical Support Representative Name: Delivery Method: - Arti Days: Prior Verbal Notification: Recipient Understood Notice: Yes Recipient Signature: Yes Med Rec Note Co-signed by Attending: Coverage Notice Comment: Last DP export: 09/05/18 12:56 p Patient Name: GREGORIO MORALES Page 18211 at 1202 All edits/amendments must be made on the electronic document DICTATION DATE: 09/06/181201 VOICE OVER ANNOUNCER: CHAUNCEY 09/06/181201 RPT#: [id number] DC DATE: STATUS: ADM IN [facility] [address] [place] [address] END OF REPORT
[2018-09-06 12:24] VITALS: BP 130/72
[2018-09-06 16:26] VITALS: BP 107/81
--- NOTE | 2018-09-06 17:56 | NUR ---
PATIENT IN BED WITH IV INTACT. NO COMPLAINTS OR SIGNS OF DISTRESS. REFUSES PLEXI PULSE ON LEFT FOOT. LEFT FOOT ELEVATED AND STILL SWOLLEN. ICE PACK APPLIED. IMMOBILIZER ON AND WORKING
--- NOTE | 2018-09-06 19:50 | NUR ---
LYING IN BED. ALERT AND ORIENTED X4. CONSISTENTLY RATES PAIN 9/10 IN LT FOOT AND LT KNEE DESPITE ALL PAIN MEDS GIVEN. RESP EVEN AND NONLABORED. RT SCD ON. REFUSES TO WEAR LT PLEXI PULSE. DRSG NOTED TO LT KNEE WITH IMMOBILIZER IN USE. PEDAL PULSES GOOD. SALINE LOCK TO LT HAND. ATTN SEEKING BEHAVIOR NOTED. CL IN REACH.
[2018-09-06 20:00] VITALS: BP 108/67
--- NOTE | 2018-09-06 20:50 | NUR ---
MEDICATED WITH PERCOCET ORDERED FOR C/O PAIN IN LT FOOT AND LT KNEE. CL IN REACH.
--- NOTE | 2018-09-06 21:35 | NUR ---
REQUESTS VALIUM. MEDICATED WITH VALIUM FOR C/O ANXIETY. CL IN REACH. ALREADY ASKING WHEN DILAUDID IS DUE.
[2018-09-07] VITALS: BP 114/76
--- NOTE | 2018-09-07 00:40 | NUR ---
MEDICATED WITH DILAUDID FOR C/O PAIN IN LT FOOT AND LT KNEE. CL IN REACH.
--- NOTE | 2018-09-07 02:45 | NUR ---
MEDICATED WITH PERCOCET FOR C/O PAIN IN LT FOOT AND LT KNEE. CL IN REACH.
[2018-09-07 04:00] VITALS: BP 100/65
--- NOTE | 2018-09-07 05:40 | NUR ---
MEDICATED WITH VALIUM FOR C/O ANXIETY. HAS BEEN UP ALL NIGHT WATCHING TV AND EATING SNACKS. CL IN REACH.
[2018-09-07] MEDS ORDERED: ELIQUIS2.5 MG PO (07:26)
[2018-09-07] MEDS ORDERED: PERCOCET 10-321 EAC1 PO (07:27)
[2018-09-07] MEDS ORDERED: DILAUDID2 MG PO (07:27)
--- NOTE | 2018-09-07 08:25 | MORECARE ---
CASE MANAGEMENT DISCHARGE SUMMARY PATIENT: GREGORIO MORALES UNIT: [id number] ADM DATE: 09/03/18 AGE: 33 : 86 SEX: F ROOM/BED: D.2210 AUTHOR: ZITA,DOC PHYSICIAN: REFERRING PHYSICIAN: HAKEEM RENAE MD DATE OF SERVICE: 09/07/18 Discharge Plan Patient Name: GREGORIO MORALES Facility: [facility]:[place] : 1985 Planned Disposition: Home Health Service Anticipated Discharge Date: Discharge Date: Expected LOS: Initial Reviewer: [email or web address] Initial Review Date: 09/03/2018 Generated: 09/07/18 9:25 am Comments DCP- Discharge Planning Updated by [email or web address]: Vandana Valladares on 09/07/18 7:[address] PATIENT WILL BE DISCHARGING HOME TODAY WITH [facility]. WALKER HAS BEEN DELIVERED PATIENT DENIES ANY OTHER NEEDS AT THIS TIME DCP- Discharge Planning Updated by [id number]: Vandana Valladares on 09/06/18 10:[address] [facility] will be delivering her walker today DCP- Discharge Planning Updated by [email or web address]: Vandana Valladares on 09/06/18 10:[address] spoke with Javier GALLEGOS and they do not have any openings for patient, [facility] tried to admit her last year and was unsuccessful due to noncompliance, but will give her another try this time. Spoke with Marisela and faxed clinicals over. DCP- Discharge Planning Updated by [email or web address]: Vandana Valladares on 09/05/18 12:[address] [facility] called and stated that she is noncompliant and will not be able to accept her DCP- Discharge Planning Updated by [id number]: Vandana Valladares on 09/05/18 11:[address] REFERRAL SENT TO [facility] DCP- Discharge Planning Updated by [email or web address]: Vandana Valladares on 09/05/18 11:[address] Patient Name: GREGORIO MORALES Admission Status: Elective Accout number: [id number] Admission Date: 09-03-2018 : 1985 Admission Diagnosis: Attending: HAKEEM RENAE Current LOS: 2 Anticipated DC Date: Planned Disposition: Home Health Service Primary Insurance: MEDICAID [place] Discharge Planning Comments: CM met with patient to complete initial dc planning assessment. CM educated patient on the CM role and verbal consent given by patient to complete assessment. Patient lives at home with her brother and sister in law where she is independent with her care. At discharge patient plans to return home and feels this is a safe discharge. Her sister in law Ela will be her tilt tray driver home. CM discussed availability of home health, rehab services, and medical equipment. She would like home health at discharge, [facility]. She also stated that she will need a walker. She does not have one anymore. I explained to her that her insurance may not pay for it if she has had one in the past 5 years and she stated she has not. [facility]ICH with [facility]. Patient denied known discharge needs at this time. CM will continue to follow and will assist as needed with dc plans/needs. Mitten Stitcher: Vandana Valladares DCPIA - Discharge Planning Initial Assessment Updated by [email or web address]: Vandana Valladares on 09/05/18 12:35 pm * Is the patient Alert and Oriented? Yes * PCP [email or web address] * Pharm[facility] * Preadmission Environment Home with Family * ADLs Independent * Equipment None * List name and contact numbers for known caregivers / representatives who currently or will assist patient after discharge: MAHESH SUÁREZ [phone] * Verbal permission to speak to the caregivers and representatives has been obtained from the patient. N/A * Community resources currently utilized None * Additional services required to return to the preadmission environment? Yes * Can the patient safely return to the preadmission environment? Yes * Has this patient been hospitalized within the prior 30 days at any hospital? No Coverage Notice Reviewer: [id number] - Vandana Valladares Notice Issued Date-Time: 09/05/2018 12:00 Notice Type: Patient Choice Letter Notice Delivered To: Patient Relationship to Patient: Upholstered Goods Crafter Name: Delivery Method: - Arti Days: Prior Verbal Notification: Recipient Understood Notice: Yes Recipient Signature: Yes Med Rec Note Co-signed by Attending: Coverage Notice Comment: Last DP export: 09/06/18 11:02 a Patient Name: GREGORIO MORALES Page 04831 at 0825 All edits/amendments must be made on the electronic document DICTATION DATE: 09/07/18823 WIRE STITCHER OPERATOR: CHAUNCEY 09/07/18823 RPT#: [id number] DC DATE: STATUS: ADM IN [facility] [address] [place] [address] END OF REPORT
[2018-09-07 09:00] VITALS: BP 103/75
--- NOTE | 2018-09-07 09:57 | NUR ---
ALERT AND ORIENTED X3 WITH PERCOCET GIVEN ORN FOR PAIN MANGAGEMNT. BRACE INTACT TO RTL KN EE WITH DRESSING CHANGED. REFUSES PLEXIE BOOTS WITH PEDAL PULSES NOTED. ANTICIPATING DISCHARGE WITH IV DISCONTINUED.
--- NOTE | 2018-09-07 10:23 | NUR ---
PATIENT DISCHARGED WITH RX GIVEN X2 FOR PERCOCENT AND DILAUDID. VERBALIZED UNDERSTANDING OF DISCHARGE INSTRUCTIONS WITH FAMILY PRESENT. LEG IMMOBILIZER REAPPLIED AFTER DRESSIGN CHANGE. INSTRUCTED ON HEME HELATH POST DISCHARGE. STABLE AT TIME OF DISCHARGE.
== END 2018-09-07 10:25 | disposition home health service (06) | DRG 468 ==
LOC: D.SDCHOLD 09-03 11:00 → D.MS 09-03 11:00 → D.SDCHOLD 09-03 12:40 → D.MS 09-03 18:09
PROVIDERS: ADMIT Orthopaedic Surgery; ATTEND Orthopaedic Surgery
PROC: 0SRD0J9 Replacement of Left Knee Joint with Synthetic Substitute, Cemented, Open Approach (ICD-10-PCS; 2018-09-03)
PROC: 0SPD08Z Removal of Spacer from Left Knee Joint, Open Approach (ICD-10-PCS; principal; 2018-09-03 13:30)
DX: T84.9XXA Unspecified complication of internal orthopedic prosthetic device, implant and graft, initial encounter (principal)

== ENCOUNTER 2018-10-17 00:13 | Inpatient (IN) | payer MEDICAID ==
[~2018-10-17] VITALS: Ht 165.1 cm; Wt 59.4 kg
[~2018-10-17 00:13] MED LIST changes: +DILAUDID2 MG PO; +PERCOCET 10-321 EAC1 PO
[2018-10-17 01:29] LABS: BASOPHILS 0.3 % (0-2); EOSINOPHILS 3.6 % (0-7); HEMATOCRIT 41.2 % (36.0-48.0); HEMOGLOBIN 14.1 g/dL (12-16); IMMATURE GRANULOCYTES 0.1 % (0-5); LYMPHOCYTES 30.3 % (15-50); MCH 29.7 pg (26.0-34.0); MCHC 34.2 g/dL (31.0-37.0); MCV 86.9 fL (80.0-100.0); MEAN PLATELET VOLUME 9.4 fL (7.4-10.4); MONOCYTES 6.7 % (2-11); RBC 4.74 10x6/uL (4.00-5.40); RDW 13.2 % (11.5-14.5); WBC 7.7 10x3/uL (4.8-10.8)
[2018-10-17 01:32] LABS: PLATELET COUNT 254 10x3/uL (130-400)
[2018-10-17 01:44] LABS: ALBUMIN 3.3 g/dL (3.4-5.0); ALKALINE PHOSPHATASE 133 U/L (46-116); ALT (SGPT) 18 U/L (10-68); BILIRUBIN - TOTAL 0.24 mg/dL (0.2-1.3); CALC OSMOLALITY 273 mosm/kg (275-300); CALCIUM 8.7 mg/dL (8.5-10.1); CARBON DIOXIDE 32.6 mmol/L (21.0-32.0); CHLORIDE - SERUM 100 mmol/L (98-107); CREATININE - SERUM 0.7 mg/dL (0.6-1.3); GLUCOSE 93 mg/dL (74-106); POTASSIUM - SERUM 3.1 mmol/L (3.5-5.1); PROTEIN - SERUM 7.5 g/dL (6.4-8.2); SODIUM 137 mmol/L (136-145); UREA NITROGEN 13 mg/dL (7-18); eGFR NON AFRICAN AMERICAN > 90 mL/min (90-120)
[2018-10-17 02:32] LABS: APTT 24.7 SECONDS (22.8-39.4); INR 1.06 (0.85-1.17); PROTIME 13.3 SECONDS (11.6-15.0)
[2018-10-17 02:51] LABS: ERYTHROCYTE SEDIMENTATION RATE 6 mm/hr (0-20)
--- NOTE | 2018-10-17 03:25 | NUR ---
PT BROUGHT TO FLOOR VIA STRETCHER, FAMILY AT BEDSIDE. PT SLEEPING, BREATHING SLOW AND EVEN. PT AWAKENED TO VERBAL STIMULI, TRANSFERED TO BED AND IMMEDIATELY WENT BACK TO SLEEP. UNABLE TO GET PT TO ANSWER D/T BEING SLEEPY. WHEN PT OPENS EYES THEY ARE BLOOD SHOT AND CANNOT LOOK YOU STRAIGHT IN THE FACE. PT RECIEVED MORPHINE AND DILAUDID PRIOR TO BEING ADMITED TO FLOOR. VSS. LEFT KNEE WOUND 4X5CM. IV LEFT FA INFUSING NS @ 100. CL IN REACH, WILL CTM
[2018-10-17 06:43] VITALS: BMI 21.8
--- NOTE | 2018-10-17 07:35 | NUR ---
PT RESTING IN BED, EYES CLOSED. RESPIRATIONS EVEN AND UNLABORED. PT AROUSES TO STERNAL RUB. PT HEAVILY SEDATED. PT SCHEDULED FOR SURGERY TODAY. OPEN WOUND TO LEFT KNEE, REDNESS/SWELLING/FOUL SMELL PRESENT. IV TO LEFT FOREARM, NS INFUSING @ 100ML/HR. SITE PATENT WITHOUT REDNESS OR SWELLING. NO C/O PAIN. NO S/S OF ACUTE DISTRESS NOTED. PT DENIES ANYTHING FURTHER AT THIS TIME. CALL LIGHT IN REACH. WILL CONTINUE TO MONITOR.
[2018-10-17 09:10] VITALS: BP 97/61
--- NOTE | 2018-10-17 09:25 | NUR ---
PT REFUSED REDRAW BY LAB FOR POTASSIUM SERUM. THIS NURSE TRIED TO INFORM PT THE IMPORTANCE OF THE REDRAW, PT STILL REFUSED. PT C/O PAIN TO LEFT KNEE, PT BP 96/61, UNABLE TO GIVE PAIN MEDICINE AT THIS TIME. PT KEPT FALLING ASLEEP WHILE TALKING TO THIS NURSE. THIS NURSE HAD TO ASK THE SAME QUESTION SEVERAL TIMES IN ORDER TO GET A RESPONSE OUT OF THE PATIENT.
[2018-10-17 16:18] VITALS: BP 112/74
--- NOTE | 2018-10-17 16:40 | NUR ---
I have reviewed this patient and I concur with the Shift Assessment completed by the Licensed Practical Nurse today this shift.
[2018-10-17 20:00] VITALS: BP 107/51
--- NOTE | 2018-10-17 20:35 | NUR ---
PT ALERT X 4. BREATH SOUNDS CLEAR BILAT. IV TO LEFT FOREARM, PATENT, DRESSING CDI. PT REPORTING PAIN OF 10/10, REQUESTING A CALL BE PLACED TO THE DR. GOLDSTEIN GIVEN FOR ANXIETY. DAVOL DRAIN TO LEFT LEG, 110 ML BLOODY DRAINAGE EMPTIED, RECOMPRESSED. BED LOW, CALL LIGHT IN REACH. NO OTHER NEEDS AT THIS TIME.
[2018-10-18 04:00] VITALS: BP 94/46
--- NOTE | 2018-10-18 07:39 | NUR ---
PT IS RESTING IN BED WITH EYES CLOSED. RESPIRATIONS ARE EVEN AND UNLABORED. PT IS EASILY AROUSED WITH VERBAL STIMULATION. PT REPORTS PAIN/ANXIETY UPON AROUSING. PT INFORMED OF PAIN MEDICATION STATUS. SEE EMAR. WILL ADDRESS ANXIETY. PT WITH BRACE TO LEFT KNEE AND DUVOL DRAIN IN PLACE. LUIS ENRIQUE WRAP TO LEFT KNEE IS C/D/I. PT REPORTS FEELING TO LLE. CAP REFILL < 3 TO LLE. PT DENIES PRESENCE OF DYSPNEA/N/V. PT DENIES FURTHER NEEDS. PT INFORMED OF NEED FOR URINE SPECIMEN. PT EDUCATED ON PROPER TECHNIQUE FOR URINE RETRIEVAL. PT VERBALIZES UNDERSTANDING. BED IS IN THE LOWEST POSITION. CALL LIGHT AND BEDSIDE TABLE ARE WITHIN REACH. SIDE RAILS X 2. WILL CONT TO MONITOR.
[2018-10-18 07:44] LABS: CALC OSMOLALITY 270 mosm/kg (275-300); CALCIUM 7.6 mg/dL (8.5-10.1); CARBON DIOXIDE 27.3 mmol/L (21.0-32.0); CHLORIDE - SERUM 102 mmol/L (98-107); CREATININE - SERUM 0.8 mg/dL (0.6-1.3); GLUCOSE 100 mg/dL (74-106); POTASSIUM - SERUM 3.1 mmol/L (3.5-5.1); SODIUM 137 mmol/L (136-145); eGFR NON AFRICAN AMERICAN 88 mL/min (90-120)
[2018-10-18 07:45] LABS: UREA NITROGEN 5 mg/dL (7-18)
[2018-10-18 08:40] VITALS: BP 103/57
[2018-10-18 08:47] VITALS: BP 98/55
[2018-10-18 09:08] LABS: BASOPHILS 0.1 % (0-2); EOSINOPHILS 4.4 % (0-7); HEMATOCRIT 30.4 % (36.0-48.0); HEMOGLOBIN 9.9 g/dL (12-16); IMMATURE GRANULOCYTES 0.2 % (0-5); LYMPHOCYTES 14.5 % (15-50); MCH 28.7 pg (26.0-34.0); MCHC 32.6 g/dL (31.0-37.0); MCV 88.1 fL (80.0-100.0); MEAN PLATELET VOLUME 9.9 fL (7.4-10.4); MONOCYTES 8.8 % (2-11); PLATELET COUNT 254 10x3/uL (130-400); RBC 3.45 10x6/uL (4.00-5.40); RDW 13.3 % (11.5-14.5); WBC 8.3 10x3/uL (4.8-10.8)
[2018-10-18 14:10] VITALS: BP 100/61
--- NOTE | 2018-10-18 14:40 | NUR ---
PT SITTING IN BED. CRYING STATING THAT "I CAN NOT HANDLE THIS PAIN. I AM ABOUT TO FREAK OUT. SOMETHING HAS TO BE DONE. CALL MY DOCTOR". DR HAYES NOTIFIED OF PT CONDITION. ORDERS RECD ARE CHANGE DILAUDID 2MG IV TO Q4 HOURS PRN.
[2018-10-18 16:03] VITALS: BP 99/60
--- NOTE | 2018-10-18 17:43 | NUR ---
PT IN ROOM BEING UNCOOPERATIVE WITH HAND RIVETER STAFF AFTER REQUESTING LINEN CHANGE. HAND RIVETER STAFF ATTMEMPTS TO CHANGE LINEN AND PT REFUSES STATING "I DONT WANT YOU TO DO THAT UNTIL I GET MY ATIVAN". PT BP IS 92/52 WITH A MANUAL READING. PT EDUCATED ON MEDICATION AND HYPOTENSIVE SIDE EFFECTS. PT BECOMES INCREASINGLY MORE AGITATED AND UNCOOPERATIVE. PT INFORMED OF NEED TO CALM DOWN AND UNACCEPTABLE BEHAVIOR TOWARDS STAFF IS NOT APPRECIATED. PT STATES "OK". WILL CONT TO MONITOR BP AND ATTEMPT TO ADMINISTER ANXIETY/PAIN MEDICATION WHEN VSS.
[2018-10-18 18:32] LABS: APPEARANCE HAZY (CLEAR); BILIRUBIN NEGATIVE (NEGATIVE); COLOR YELLOW (YELLOW); GLUCOSE NEGATIVE (NEGATIVE); KETONE NEGATIVE (NEGATIVE); NITRITE NEGATIVE (NEGATIVE); PROTEIN NEGATIVE (NEGATIVE); SPECIFIC GRAVITY 1.015 (1.005-1.020); UROBILINOGEN NORMAL (NORMAL)
[2018-10-18 18:33] LABS: BACTERIA MODERATE /hpf (NONE SEEN); EPITHELIAL CELLS 0-5 /hpf (0-5); RED CELLS - URINE >50 /hpf (0-5); WHITE CELLS - URINE OCC /hpf (0-5)
[2018-10-18 20:00] VITALS: BP 107/59
--- NOTE | 2018-10-18 21:00 | NUR ---
PT RESTING IN BED. ALERT AND ORIENTED. NO SINGNS OF DISTRESS. BREATHING EVEN AND UNLABORED. WILL CONTINUE PLAN OF CARE. CALL LIGHT IN REACH. BED LOWERED AND LOCKED.
[2018-10-19] VITALS: BP 106/57
[2018-10-19 04:00] VITALS: BP 95/46
--- NOTE | 2018-10-19 06:31 | NUR ---
I have reviewed this patient and I concur with the Shift Assessment completed by the Licensed Practical Nurse today this shift.
[2018-10-19 06:46] LABS: CALC OSMOLALITY 273 mosm/kg (275-300); CARBON DIOXIDE 30.2 mmol/L (21.0-32.0); CHLORIDE - SERUM 102 mmol/L (98-107); CREATININE - SERUM 0.9 mg/dL (0.6-1.3); GLUCOSE 103 mg/dL (74-106); MAGNESIUM - SERUM 1.8 mg/dL (1.8-2.4); POTASSIUM - SERUM 3.5 mmol/L (3.5-5.1); SODIUM 138 mmol/L (136-145); UREA NITROGEN 6 mg/dL (7-18); eGFR NON AFRICAN AMERICAN 77 mL/min (90-120)
[2018-10-19 06:57] LABS: BASOPHILS 0.1 % (0-2); EOSINOPHILS 5.9 % (0-7); HEMOGLOBIN 9.8 g/dL (12-16); IMMATURE GRANULOCYTES 0.3 % (0-5); LYMPHOCYTES 23.1 % (15-50); MCH 29.2 pg (26.0-34.0); MCHC 32.7 g/dL (31.0-37.0); MCV 89.3 fL (80.0-100.0); MEAN PLATELET VOLUME 9.8 fL (7.4-10.4); MONOCYTES 7.3 % (2-11); NEUTROPHILS 63.3 % (40-80); PLATELET COUNT 244 10x3/uL (130-400); RBC 3.36 10x6/uL (4.00-5.40); RDW 13.2 % (11.5-14.5); WBC 6.8 10x3/uL (4.8-10.8)
[2018-10-19 08:29] VITALS: BP 100/50
--- NOTE | 2018-10-19 10:51 | NUR ---
ALERT AND ORIENTED WITH DRESSING INTACT TO LT. KNEE. PEDAL PULSES NOTED W/O ANY PERIPHERAL EDEMA NOTED. IVF INFUSING AT PRESCRIBED RATE. REYNALDO DRAIN NOED WITH DARK BLOODY DRAINAGE NOTED. USES BEDPAN WITH ASSIST AND WATCHES CLOCK FOR PAIN MEDICATIONS PRN. ENCOURAGED TO USE CALL LIGHT FOR ASSSIT.
[2018-10-19 13:32] VITALS: BP 105/52
[2018-10-19 18:19] VITALS: BP 103/57
[2018-10-19 21:13] VITALS: BP 107/57
--- NOTE | 2018-10-20 00:25 | NUR ---
PT RESTING IN BED. EYES CLOSED. NO SIGNS OF DISTRESS. BREATHING EVEN AND UNLABORED. WILL CONTINUE PLAN OF CARE. CALL LIGHT IN REACH. BED LOWERED AND LOCKED.
[2018-10-20 01:15] VITALS: BP 102/55
--- NOTE | 2018-10-20 03:00 | NUR ---
I have reviewed this patient and I concur with the Shift Assessment completed by the Licensed Practical Nurse today this shift.
[2018-10-20 05:10] VITALS: BP 100/55
[2018-10-20 07:07] LABS: BASOPHILS 0.2 % (0-2); HEMATOCRIT 26.3 % (36.0-48.0); HEMOGLOBIN 8.6 g/dL (12-16); IMMATURE GRANULOCYTES 0.2 % (0-5); LYMPHOCYTES 32.5 % (15-50); MCH 28.8 pg (26.0-34.0); MCHC 32.7 g/dL (31.0-37.0); MEAN PLATELET VOLUME 9.4 fL (7.4-10.4); MONOCYTES 8.4 % (2-11); NEUTROPHILS 49.7 % (40-80); PLATELET COUNT 237 10x3/uL (130-400); RBC 2.99 10x6/uL (4.00-5.40); WBC 4.8 10x3/uL (4.8-10.8)
[2018-10-20 07:21] LABS: CALCIUM 7.7 mg/dL (8.5-10.1); CARBON DIOXIDE 31.1 mmol/L (21.0-32.0); CHLORIDE - SERUM 105 mmol/L (98-107); GLUCOSE 78 mg/dL (74-106); POTASSIUM - SERUM 3.2 mmol/L (3.5-5.1); SODIUM 140 mmol/L (136-145)
[2018-10-20 07:22] LABS: CALC OSMOLALITY 274 mosm/kg (275-300); CREATININE - SERUM 0.6 mg/dL (0.6-1.3); UREA NITROGEN 4 mg/dL (7-18); eGFR NON AFRICAN AMERICAN > 90 mL/min (90-120)
[2018-10-20 08:45] VITALS: BP 100/62
--- NOTE | 2018-10-20 08:50 | NUR ---
PT AAOX4 RESP EVEN AND NONLABABORED NO SIGNS OF DISTRESS NOTED NO NEEDS EXPRESSED AT THIS TIME WILL COPNTINUE TO MONITOR CL IN REACH
[2018-10-20 12:41] VITALS: BP 80/41
[2018-10-20 16:59] VITALS: BP 90/46
--- NOTE | 2018-10-20 18:49 | NUR ---
I have reviewed this patient and I concur with the Shift Assessment completed by the Licensed Practical Nurse today this shift.
--- NOTE | 2018-10-20 19:15 | NUR ---
RECEIVED CARE FROM DAY NURSE. LYING IN BED WITH COMPANY AT SIDE. NO IV. LEFT LEG WITH ICE APPLIED. DAVOL DRAIN EMPTIED. CALL LIGHT AT SIDE.
--- NOTE | 2018-10-20 19:45 | NUR ---
ATTEMPTED IV X2 WITH NO SUCCESS SPOKE WITH ER AND REPORTS THEY WILL COME TRY SOON POSSIBLE.
[2018-10-20 19:51] VITALS: BP 99/56
--- NOTE | 2018-10-20 21:30 | NUR ---
SPOKE WITH DR COLUNGA, RECEIVED ORDER TO GIVE DEMEROL 75 MG Q6H PRN IM UNTIL IV ACCESS ESTABLISHED. AND TO PLACE PICC.
[2018-10-21] VITALS: BP 104/48
--- NOTE | 2018-10-21 03:00 | NUR ---
I have reviewed this patient and I concur with the Shift Assessment completed by the Licensed Practical Nurse today this shift.
--- NOTE | 2018-10-21 03:00 | NUR ---
I have reviewed this patient and I concur with the Shift Assessment completed by the Licensed Practical Nurse today this shift.
[2018-10-21 04:54] VITALS: BP 102/54
[2018-10-21 07:02] LABS: BASOPHILS 0.2 % (0-2); EOSINOPHILS 8.2 % (0-7); HEMATOCRIT 28.5 % (36.0-48.0); IMMATURE GRANULOCYTES 0.2 % (0-5); LYMPHOCYTES 27.1 % (15-50); MCH 28.3 pg (26.0-34.0); MCHC 31.6 g/dL (31.0-37.0); MCV 89.6 fL (80.0-100.0); MEAN PLATELET VOLUME 9.1 fL (7.4-10.4); MONOCYTES 7.4 % (2-11); NEUTROPHILS 56.9 % (40-80); PLATELET COUNT 266 10x3/uL (130-400); RBC 3.18 10x6/uL (4.00-5.40); RDW 13.1 % (11.5-14.5); WBC 5.1 10x3/uL (4.8-10.8)
[2018-10-21 07:15] LABS: CALCIUM 7.8 mg/dL (8.5-10.1); CARBON DIOXIDE 32.2 mmol/L (21.0-32.0); CHLORIDE - SERUM 108 mmol/L (98-107); CREATININE - SERUM 0.7 mg/dL (0.6-1.3); GLUCOSE 86 mg/dL (74-106); SODIUM 143 mmol/L (136-145); eGFR NON AFRICAN AMERICAN > 90 mL/min (90-120)
[2018-10-21 07:17] LABS: CALC OSMOLALITY 282 mosm/kg (275-300); POTASSIUM - SERUM 4.1 mmol/L (3.5-5.1); UREA NITROGEN 9 mg/dL (7-18)
[2018-10-21 07:47] VITALS: BP 86/45
--- NOTE | 2018-10-21 08:00 | NUR ---
PT AAOX4 REQUESTING PAIN MEDS EXPRESSED TO PT I WOULD CHECK EMAR AND ADMINISTER PER EMAR AND PROTOCOL, NO OTHER NEEDS EXPRESSED WILL CONTINUE TO MONITOR CL IN REACH
[2018-10-21 13:06] VITALS: BP 97/48
--- NOTE | 2018-10-21 13:50 | NUR ---
PT RESTING AT THIS TIME EYES CLOSED EASY RISE AND FALL OF CHEST NO SIGNS OF DISTRESS, CL IN REACH
[2018-10-21 17:10] VITALS: BP 107/62
--- NOTE | 2018-10-21 19:15 | NUR ---
RECEIVED CARE FROM DAY NURSE. DILAUDID GIVEN PER ORDER FOR PAIN. NO OTHER NEEDS VOICED AT THIS TIME. CALL LIGHT AT SIDE. IV INFUSING VANC TO LEFT FA. COMPANY AT SIDE.
[2018-10-21 20:32] VITALS: BP 97/48
[2018-10-22 01:42] VITALS: BP 102/64
[2018-10-22 04:57] VITALS: BP 94/47
[2018-10-22 05:34] LABS: BASOPHILS 0.2 % (0-2); EOSINOPHILS 9.3 % (0-7); HEMATOCRIT 28.5 % (36.0-48.0); HEMOGLOBIN 8.9 g/dL (12-16); IMMATURE GRANULOCYTES 0.5 % (0-5); LYMPHOCYTES 23.8 % (15-50); MCH 28.3 pg (26.0-34.0); MCHC 31.2 g/dL (31.0-37.0); MCV 90.5 fL (80.0-100.0); MEAN PLATELET VOLUME 8.8 fL (7.4-10.4); MONOCYTES 6.4 % (2-11); NEUTROPHILS 59.8 % (40-80); PLATELET COUNT 278 10x3/uL (130-400); RBC 3.15 10x6/uL (4.00-5.40); RDW 13.2 % (11.5-14.5); WBC 5.8 10x3/uL (4.8-10.8)
[2018-10-22 06:00] LABS: CALC OSMOLALITY 278 mosm/kg (275-300); CALCIUM 7.9 mg/dL (8.5-10.1); CARBON DIOXIDE 31.1 mmol/L (21.0-32.0); CHLORIDE - SERUM 106 mmol/L (98-107); CREATININE - SERUM 0.8 mg/dL (0.6-1.3); GLUCOSE 93 mg/dL (74-106); MAGNESIUM - SERUM 1.9 mg/dL (1.8-2.4); SODIUM 141 mmol/L (136-145); eGFR NON AFRICAN AMERICAN 88 mL/min (90-120)
[2018-10-22 06:07] LABS: UREA NITROGEN 6 mg/dL (7-18)
--- NOTE | 2018-10-22 06:33 | NUR ---
I have reviewed this patient and I concur with the Shift Assessment completed by the Licensed Practical Nurse today this shift.
--- NOTE | 2018-10-22 08:22 | NUR ---
PT RESTING IN BED, ALERT AND ORIENTED. NO C/O PAIN. NO S/S OF ACUTE DISTRESS NOTED. POD #5 I&D LEFT KNEE. DRAIN TO LEFT KNEE. IV TO LEFT FOREARM, SL. SITE PATENT WITHOUT REDNESS OR SWELLING. PT UP WITH ASSIST. PT DENIES ANYTHING FURTHER AT THIS TIME. CALL LIGHT IN REACH. WILL CONTINUE TO MONITOR.
[2018-10-22 08:39] VITALS: BP 109/56
[2018-10-22 13:13] VITALS: BP 112/59
[2018-10-22 15:15] VITALS: Ht 165.1 cm; Wt 59.4 kg
[2018-10-22 16:46] VITALS: BP 101/56
--- NOTE | 2018-10-22 16:56 | NUR ---
I have reviewed this patient and I concur with the Shift Assessment completed by the Licensed Practical Nurse today this shift.
--- NOTE | 2018-10-22 18:41 | NUR ---
PT RESTING IN BED, ALERT AND ORIENTED. PT DENIES ANYTHING FURTHER AT THIS TIME CALL LIGHT IN REACH. FAMILY AT BEDSIDE. WILL CONTINUE TO MONITOR.
[2018-10-22 21:13] VITALS: BP 108/59
[2018-10-23 04:00] VITALS: BP 109/51
--- NOTE | 2018-10-23 07:34 | NUR ---
patient on light at least every hour. she was very upset and mad with staff asking for bouth pain med and ativa, and a zanaflex all together. educated that she did not have all these meds due at one time and could only be given 1 norcotic at a time. that there needed to be one hour between each. she shad well radha friedman does it , educated pt, that this nusre does not and i am responsable for how i give medications. and do not feel safe giving all that together. later called to room for a pain med informed pt that i would retrun as soon as i could but it would be just a minite as anouther pt. needed somthing now , she stated well just unhook me then I will go smoke. that was done.
[2018-10-23 07:51] LABS: BASOPHILS 0.2 % (0-2); EOSINOPHILS 10.8 % (0-7); HEMATOCRIT 27.3 % (36.0-48.0); HEMOGLOBIN 8.4 g/dL (12-16); IMMATURE GRANULOCYTES 0.4 % (0-5); MCH 28.1 pg (26.0-34.0); MCHC 30.8 g/dL (31.0-37.0); MCV 91.3 fL (80.0-100.0); MEAN PLATELET VOLUME 8.8 fL (7.4-10.4); MONOCYTES 7.2 % (2-11); NEUTROPHILS 55.4 % (40-80); PLATELET COUNT 283 10x3/uL (130-400); RBC 2.99 10x6/uL (4.00-5.40); RDW 13.3 % (11.5-14.5); WBC 5.4 10x3/uL (4.8-10.8)
[2018-10-23 08:00] LABS: CALC OSMOLALITY 275 mosm/kg (275-300); CARBON DIOXIDE 31.5 mmol/L (21.0-32.0); CHLORIDE - SERUM 106 mmol/L (98-107); CREATININE - SERUM 0.7 mg/dL (0.6-1.3); GLUCOSE 98 mg/dL (74-106); MAGNESIUM - SERUM 1.9 mg/dL (1.8-2.4); POTASSIUM - SERUM 3.8 mmol/L (3.5-5.1); SODIUM 140 mmol/L (136-145); eGFR NON AFRICAN AMERICAN > 90 mL/min (90-120)
[2018-10-23 08:04] LABS: UREA NITROGEN 4 mg/dL (7-18)
--- NOTE | 2018-10-23 08:49 | MORECARE ---
CASE MANAGEMENT DISCHARGE SUMMARY PATIENT: GREGORIO MORALES S UNIT: [id number] ADM DATE: 10/17/18 AGE: 33 : [birth year] SEX: F ROOM/BED: D.2233 AUTHOR: MURALI AHUAMDA PHYSICIAN: REFERRING PHYSICIAN: HRAMEET HAYES MD DATE OF SERVICE: 10/23/18 Discharge Plan Patient Name: GREGORIO MORALES Facility: [facility]:[place] : 1985 Planned Disposition: Home with Home Health Anticipated Discharge Date: Discharge Date: Expected LOS: Initial Reviewer: [email or web address] Initial Review Date: 10/23/2018 Generated: 10/23/18 9:49 am Patient Name: GREGORIO MORALES Page 18274 at 0849 All edits/amendments must be made on the electronic document DICTATION DATE: 10/23/1849 BREW HOUSE SUPERVISOR: CHAUNCEY 10/23/18 0849 RPT#: [id number] DC DATE: STATUS: ADM IN [facility] [address] [place] [address] END OF REPORT
--- NOTE | 2018-10-23 08:59 | MORECARE ---
CASE MANAGEMENT DISCHARGE SUMMARY PATIENT: GREGORIO MORALES UNIT: [id number] ADM DATE: 10/17/18 AGE: 33 : [birth year] SEX: F ROOM/BED: D.2233 AUTHOR: MURALI AHUMADA PHYSICIAN: REFERRING PHYSICIAN: HARMEET HAYES MD DATE OF SERVICE: 10/23/18 Discharge Plan Patient Name: GREGORIO MORALSE Facility: [facility]:[place] : 1985 Planned Disposition: Home with Home Health Anticipated Discharge Date: Discharge Date: Expected LOS: Initial Reviewer: [email or web address] Initial Review Date: 10/23/2018 Generated: 10/23/18 9:59 am DCPIA - Discharge Planning Initial Assessment Updated by [email or web address]: Marry Waters on 10/23/18 8:52 am * Is the patient Alert and Oriented? Yes * How many steps to enter\exit or inside your home? 1/0 * PCP Franca Guzman at Dr. Chris office * Pharmacy [place] * Preadmission Environment Home with Family * ADLs Partial Dependent * Partial ADLs (Assistance needed) Ambulation * Equipment Walker * List name and contact numbers for known caregivers / representatives who currently or will assist patient after discharge: Marcelino serna and gilma [facility] [phone] [facility] [phone] * Verbal permission to speak to the caregivers and representatives has been obtained from the patient. Yes * Community resources currently utilized None * Additional services required to return to the preadmission environment? Yes * Can the patient safely return to the preadmission environment? Yes * Has this patient been hospitalized within the prior 30 days at any hospital? No Last DP export: 10/23/18 7:49 am Patient Name: GREGORIO MORALES Page 00475 at 0859 All edits/amendments must be made on the electronic document DICTATION DATE: 10/23/1858 CHILD CUSTODY EVALUATOR: CHAUNCEY 10/23/1858 RPT#: [id number] DC DATE: STATUS: ADM IN [facility] [address] [place] [address] END OF REPORT
--- NOTE | 2018-10-23 09:08 | MORECARE ---
CASE MANAGEMENT DISCHARGE SUMMARY PATIENT: GREGORIO MORALES UNIT: [id number] ADM DATE: 10/17/18 AGE: 33 : 87 SEX: F ROOM/BED: D.2233 AUTHOR: ZITADOC PHYSICIAN: REFERRING PHYSICIAN: HARMEET HAYES MD DATE OF SERVICE: 10/23/18 Discharge Plan Patient Name: GREGORIO MORALES Facility: [facility]:[place] : 1985 Planned Disposition: Home with Home Health Anticipated Discharge Date: Discharge Date: Expected LOS: Initial Reviewer: [email or web address] Initial Review Date: 10/23/2018 Generated: 10/23/18 10:07 am Comments DCP- Discharge Planning Updated by [email or web address]: Marry Waters on 10/23/18 8:[address] Patient Name: GREGORIO MORALES Admission Status: ER Accout number: [id number] Admission Date: 10-17-2018 : 1985 Admission Diagnosis:INFECT/INFLM REACTION DUE TO INTERNAL LEFT KNEE PROSTH, Attending: HARMEET HAYES Current LOS: 6 Anticipated DC Date: Planned Disposition: Home with Home Health Primary Insurance: [facility] [employer]IONS [facility] Discharge Planning Comments: CM met with patient to discuss discharge planning, he sister in law (Ela) is present in the room. Verbal permission received to discuss discharge planning with GRERI in the room. She states she lives at [address] [place] [address] with a room mate (Shira Stone). She states her discharge plan is to return home with room mate. Her GERRI will drive her home. She will most likely need home health for dressing changes and possible IV antibiotics. ERICH for [facility] signed. She states she has used [facility] for IV antibiotics and ERICH signed. She declines additional DME needs. I sent an email to admissions to correct home address on face sheet. I called Marina at [facility], she has asked for antibiotic orders [facility] informed. CM will continue to follow and assist with discharge planning/needs. Friction Welding Machine Operator: Marry Waters DCPIA - Discharge Planning Initial Assessment Updated by [email or web address]: Marry Waters on 10/23/18 8:52 am * Is the patient Alert and Oriented? Yes * How many steps to enter\exit or inside your home? 1/0 * PCP Franca Guzman at Dr. Chris office * Pharmacy [place] * Preadmission Environment Home with Family * ADLs Partial Dependent * Partial ADLs (Assistance needed) Ambulation * Equipment Walker * List name and contact numbers for known caregivers / representatives who currently or will assist patient after discharge: Marcelino - brother and medical [facility] [phone] [facility] [phone] * Verbal permission to speak to the caregivers and representatives has been obtained from the patient. Yes * Community resources currently utilized None * Additional services required to return to the preadmission environment? Yes * Can the patient safely return to the preadmission environment? Yes * Has this patient been hospitalized within the prior 30 days at any hospital? No Coverage Notice Reviewer: [email or web address] Lalo Waters Notice Issued Date-Time: 10/23/2018 9:05 Notice Type: Patient Choice Letter Notice Delivered To: Patient Relationship to Patient: Self Xm1 Tank Driver Name: Delivery Method: HAND - Hand Delivered Arti Days: Prior Verbal Notification: Recipient Understood Notice: Yes Recipient Signature: Yes Med Rec Note Co-signed by Attending: Coverage Notice Comment: ERICH for [employer] Last DP export: 10/23/18 7:59 am Patient Name: GREGORIO MORALES Page [id number] at 0908 All edits/amendments must be made on the electronic document DICTATION DATE: 10/23/18906 FOSTER CARE WORKER: CHAUNCEY 10/23/18906 RPT#: [id number] DC DATE: STATUS: ADM IN [facility] [address] [place] [address] END OF REPORT
[2018-10-23 13:32] VITALS: BP 108/58
[2018-10-23] MEDS ORDERED: FLORAJEN3 CAPS460 MG PO (13:39)
[2018-10-23] MEDS ORDERED: Nicoderm [PBKC] TRANSDERM (13:39)
[2018-10-23] MEDS ORDERED: LEVAQUIN750 MG PO (13:40)
--- NOTE | 2018-10-23 13:58 | MORECARE ---
CASE MANAGEMENT DISCHARGE SUMMARY PATIENT: GREGORIO MORALES UNIT: [id number] ADM DATE: 10/17/18 AGE: 33 : [birth year] SEX: F ROOM/BED: D.2233 AUTHOR: MURALI AHUMADA PHYSICIAN: REFERRING PHYSICIAN: HARMEET HAYES MD DATE OF SERVICE: 10/23/18 Discharge Plan Patient Name: GREGORIO MORALES Facility: [facility]:[place] : 1985 Planned Disposition: Home with Home Health Anticipated Discharge Date: Discharge Date: Expected LOS: Initial Reviewer: [email or web address] Initial Review Date: 10/23/2018 Generated: 10/23/18 2:57 pm Comments DCP- Discharge Planning Updated by [id number]: Marry Waters on 10/23/18 8:[address] Patient Name: GREGORIO MORALES Admission Status: ER Accout number: [id number] Admission Date: 10-17-2018 : 1985 Admission Diagnosis:INFECT/INFLM REACTION DUE TO INTERNAL LEFT KNEE PROSTH, Attending: HARMEET HAYES Current LOS: 6 Anticipated DC Date: Planned Disposition: Home with Home Health Primary Insurance: [facility] PRIVATE OPTIONS [facility] Discharge Planning Comments: CM met with patient to discuss discharge planning, he sister in law (Ela) is present in the room. Verbal permission received to discuss discharge planning with GERRI in the room. She states she lives at [address] [place] [address] with a room mate (Shira Stone). She states her discharge plan is to return home with room mate. Her GERRI will drive her home. She will most likely need home health for dressing changes and possible IV antibiotics. ERICH for [facility] signed. She states she has used [place] for IV antibiotics and ERICH signed. She declines additional DME needs. I sent an email to admissions to correct home address on face sheet. I called Marina at [facility], she has asked for antibiotic orders Genesis SCOTT informed. CM will continue to follow and assist with discharge planning/needs. Surgical Technology Instructor: Marry Waters DCPIA - Discharge Planning Initial Assessment Updated by [email or web address]: Marry Waters on 10/23/18 8:52 am * Is the patient Alert and Oriented? Yes * How many steps to enter\exit or inside your home? 1/0 * PCP Franca Guzman at Dr. Chris office * Pharmacy [facility] * Preadmission Environment Home with Family * ADLs Partial Dependent * Partial ADLs (Assistance needed) Ambulation * Equipment Walker * List name and contact numbers for known caregivers / representatives who currently or will assist patient after discharge: Marcelino - brothusama and medical [facility] [phone] [facility] [phone] * Verbal permission to speak to the caregivers and representatives has been obtained from the patient. Yes * Community resources currently utilized None * Additional services required to return to the preadmission environment? Yes * Can the patient safely return to the preadmission environment? Yes * Has this patient been hospitalized within the prior 30 days at any hospital? No External Providers External Provider: [facility] Next Contact Date: Service Request Date: Service Type: Resolution: Reviewer: Comments: Coverage Notice Reviewer: [email or web address] Lalo Waters Notice Issued Date-Time: 10/23/2018 9:05 Notice Type: Patient Choice Letter Notice Delivered To: Patient Relationship to Patient: Self Principal Programmer Name: Delivery Method: HAND - Hand Delivered Arti Days: Prior Verbal Notification: Recipient Understood Notice: Yes Recipient Signature: Yes Med Rec Note Co-signed by Attending: Coverage Notice Comment: ERICH for [facility] Last DP export: 10/23/18 8:08 am Patient Name: GREGORIO MORALES Page [id number] at 1358 All edits/amendments must be made on the electronic document DICTATION DATE: 10/23/18 1357 BRIM CURLER: CHAUNCEY 10/23/18 1357 RPT#: [id number] DC DATE: STATUS: ADM IN [facility] [address] [place] [address] END OF REPORT
--- NOTE | 2018-10-23 14:15 | MORECARE ---
CASE MANAGEMENT DISCHARGE SUMMARY PATIENT: GREGORIO MORALES UNIT: [id number] ADM DATE: 10/17/18 AGE: 33 : [birth year] SEX: F ROOM/BED: D.2233 AUTHOR: ZITADOC PHYSICIAN: REFERRING PHYSICIAN: HARMEET HAYES MD DATE OF SERVICE: 10/23/18 Discharge Plan Patient Name: GREGORIO MORALES Facility: [facility]:[place] : 1985 Planned Disposition: Home with Home Health Anticipated Discharge Date: Discharge Date: Expected LOS: Initial Reviewer: [email or web address] Initial Review Date: 10/23/2018 Generated: 10/23/18 3:15 pm Comments DCP- Discharge Planning Updated by [email or web address]: Marry Waters on 10/23/18 8:[address] Patient Name: GREGORIO MORALES Admission Status: ER Accout number: [id number] Admission Date: 10-17-2018 : 1985 Admission Diagnosis:INFECT/INFLM REACTION DUE TO INTERNAL LEFT KNEE PROSTH, Attending: HARMEET HAYES Current LOS: 6 Anticipated DC Date: Planned Disposition: Home with Home Health Primary Insurance: [facility] PRIVATE OPTIONS [facility] Discharge Planning Comments: CM met with patient to discuss discharge planning, he sister in law (Ela) is present in the room. Verbal permission received to discuss discharge planning with GERRI in the room. She states she lives at [address] [place] [address] with a room mate (Shira Stone). She states her discharge plan is to return home with room mate. Her GERRI will drive her home. She will most likely need home health for dressing changes and possible IV antibiotics. ERICH for [facility] signed. She states she has used [place] for IV antibiotics and ERICH signed. She declines additional DME needs. I sent an email to admissions to correct home address on face sheet. I called Marina at [facility], she has asked for antibiotic orders Genesis SCOTT informed. CM will continue to follow and assist with discharge planning/needs. Hotel Receptionist: Marry Waters DCPIA - Discharge Planning Initial Assessment Updated by [email or web address]: Marry Waters on 10/23/18 8:52 am * Is the patient Alert and Oriented? Yes * How many steps to enter\exit or inside your home? 1/0 * PCP Franca Guzman at Dr. Chris office * Pharmacy [facility] * Preadmission Environment Home with Family * ADLs Partial Dependent * Partial ADLs (Assistance needed) Ambulation * Equipment Walker * List name and contact numbers for known caregivers / representatives who currently or will assist patient after discharge: Marcelino - brothusama and medical [facility] [phone] [facility] [phone] * Verbal permission to speak to the caregivers and representatives has been obtained from the patient. Yes * Community resources currently utilized None * Additional services required to return to the preadmission environment? Yes * Can the patient safely return to the preadmission environment? Yes * Has this patient been hospitalized within the prior 30 days at any hospital? No External Providers [facility] Next Contact Date: Service Request Date: Service Type: Resolution: Reviewer: Comments: Coverage Notice Reviewer: [email or web address] Lalo Waters Notice Issued Date-Time: 10/23/2018 9:05 Notice Type: Patient Choice Letter Notice Delivered To: Patient Relationship to Patient: Self [id number] Armor Crewman Name: Delivery Method: HAND - Hand Delivered Arti Days: Prior Verbal Notification: Recipient Understood Notice: Yes Recipient Signature: Yes Med Rec Note Co-signed by Attending: Coverage Notice Comment: ERICH for [employer] Last DP export: 10/23/18 12:57 pm Patient Name: GREGORIO MORALES Page 13310 at 1415 All edits/amendments must be made on the electronic document DICTATION DATE: 10/23/18 1415 LABOR LAW PROFESSOR: CHAUNCEY 10/23/18 1415 RPT#: [id number] DC DATE: STATUS: ADM IN [facility] [address] [place] [address] END OF REPORT
--- NOTE | 2018-10-23 14:31 | MORECARE ---
CASE MANAGEMENT DISCHARGE SUMMARY PATIENT: GREGORIO MORALES UNIT: [id number] ADM DATE: 10/17/18 AGE: 33 : [birth year] SEX: F ROOM/BED: D.2233 AUTHOR: ZITA,DOC PHYSICIAN: REFERRING PHYSICIAN: HARMEET HAYES MD DATE OF SERVICE: 10/23/18 Discharge Plan Patient Name: GREGORIO MORALES Facility: [facility]:[place] : 1985 Planned Disposition: Home with Home Health Anticipated Discharge Date: Discharge Date: Expected LOS: Initial Reviewer: [email or web address] Initial Review Date: 10/23/2018 Generated: 10/23/18 3:31 pm Comments DCP- Discharge Planning Updated by [email or web address]: Marry Waters on 10/23/18 1:[address] Received discharge orders. She has chosen [facility], I called referral to [facility] and they decline because they cannot accept another Medicaid insurance. I called [place] and Mesha declined for availability. I called [facility] and spoke with Michael, she states that they can see her tomorrow for dressing change. Clinical and orders faxed to [facility]. I have informed Genesisalessio Ramirez of need for pain Rx and patient requesting a stronger dose. field service coordinator notified of need for pain Rx prior to discharge. I informed the patient of discharging today and she states she will call her ride after her nap. CM will continue to follow and assist with discharge planning/needs. DCP- Discharge Planning Updated by [email or web address]: Marry Waters on 10/23/18 8:[address] Patient Name: GREGORIO MORALES Admission Status: ER Accout number: [id number] Admission Date: 10-17-2018 : 1985 Admission Diagnosis:INFECT/INFLM REACTION DUE TO INTERNAL LEFT KNEE PROSTH, Attending: HARMEET HAYES Current LOS: 6 Anticipated DC Date: Planned Disposition: Home with Home Health Primary Insurance: [place] [employer] OPTIONS [facility] Discharge Planning Comments: CM met with patient to discuss discharge planning, he sister in law (Ela) is present in the room. Verbal permission received to discuss discharge planning with GERRI in the room. She states she lives at [address] [place] [address] with a room mate (Shira Stone). She states her discharge plan is to return home with room mate. Her GERRI will drive her home. She will most likely need home health for dressing changes and possible IV antibiotics. ERICH for [facility] signed. She states she has used [place] for IV antibiotics and ERICH signed. She declines additional DME needs. I sent an email to admissions to correct home address on face sheet. I called Marina at [facility], she has asked for antibiotic orders Genesis SCOTT informed. CM will continue to follow and assist with discharge planning/needs. M48 M60 Armor Crewman: Marry Waters DCPIA - Discharge Planning Initial Assessment Updated by [email or web address]: Marry Waters on 10/23/18 8:52 am * Is the patient Alert and Oriented? Yes * How many steps to enter\exit or inside your home? 1/0 * PCP Franca Guzman at Dr. Chris office * Pharmacy [facility] * Preadmission Environment Home with Family * ADLs Partial Dependent * Partial ADLs (Assistance needed) Ambulation * Equipment Walker * List name and contact numbers for known caregivers / representatives who currently or will assist patient after discharge: Marcelino - brother and medical [facility] [phone] [facility] - [phone] * Verbal permission to speak to the caregivers and representatives has been obtained from the patient. Yes * Community resources currently utilized None * Additional services required to return to the preadmission environment? Yes * Can the patient safely return to the preadmission environment? Yes * Has this patient been hospitalized within the prior 30 days at any hospital? No Coverage Notice Reviewer: [id number] - Marry Waters Notice Issued Date-Time: 10/23/2018 9:05 Notice Type: Patient Choice Letter Notice Delivered To: Patient Relationship to Patient: Self Entry Level Truck Driver Name: Delivery Method: HAND - Hand Delivered Arti Days: Prior Verbal Notification: Recipient Understood Notice: Yes Recipient Signature: Yes Med Rec Note Co-signed by Attending: Coverage Notice Comment: ERICH for [facility] and [facility] are second choice. Last DP export: 10/23/18 1:15 pm Patient Name: GREGORIO MORALES Page [id number] at 1431 All edits/amendments must be made on the electronic document DICTATION DATE: 10/23/18 143 DRIVEMATIC MACHINE OPERATOR: CHAUNCEY 10/23/18 143 RPT#: [id number] DC DATE: STATUS: ADM IN [facility] [address] [place] [address] END OF REPORT
[2018-10-23] MEDS ORDERED: DILAUDID2 MG PO (15:33)
--- NOTE | 2018-10-23 16:24 | NUR ---
DISCHARGE PAPERWORK SIGNED, ALL QUESTIONS ANSWERED. IV TO LEFT FOREARM DC'D, TIP INTACT. ESCORTED OUT BY WHEELCHAIR.
--- NOTE | 2018-10-24 08:50 | MORECARE ---
CASE MANAGEMENT DISCHARGE SUMMARY PATIENT: GREGORIO MORALES UNIT: [id number] ADM DATE: 10/17/18 AGE: 33 : [birth year] SEX: F ROOM/BED: D.2233 AUTHOR: ZITADOC PHYSICIAN: REFERRING PHYSICIAN: HARMEET HAYES MD DATE OF SERVICE: 10/24/18 Discharge Plan Patient Name: GREGORIO MORALES Facility: [facility]:[place] : 1985 Planned Disposition: Home with Home Health Anticipated Discharge Date: Discharge Date: 10/23/2018 Expected LOS: Initial Reviewer: [email or web address] Initial Review Date: 10/23/2018 Generated: 10/24/18 9:49 am Comments DCP- Discharge Planning Updated by [email or web address]: Marry Gutiérrezpito on 10/24/18 7:[address] Received a call this morning that [facility] was unable to accept patient because of insurance and Michael with [facility] sent referral to [place]. I called [facility] and spoke with Mesha, she states they are accepting patient and will see her this morning. She states she received all clinical except for dressing change and lab order, I faxed this to them at [phone] per request. DCP- Discharge Planning Updated by [email or web address]: Marry Waters on 10/23/18 1:[address] Received discharge orders. She has chosen [facility], I called referral to [facility] and they decline because they cannot accept another Medicaid insurance. I called [place] and Mesha declined for availability. I called [facility] and spoke with Michael, she states that they can see her tomorrow for dressing change. Clinical and orders faxed to [facility]. I have informed Genesis Ramirez of need for pain Rx and patient requesting a stronger dose. regional office coordinator notified of need for pain Rx prior to discharge. I informed the patient of discharging today and she states she will call her ride after her nap. CM will continue to follow and assist with discharge planning/needs. DCP- Discharge Planning Updated by [email or web address]: Marry Waters on 10/23/18 8:[address] Patient Name: GREGORIO MORALES Admission Status: ER Accout number: [id number] Admission Date: 10-17-2018 : 1985 Admission Diagnosis:INFECT/INFLM REACTION DUE TO INTERNAL LEFT KNEE PROSTH, Attending: HARMEET HAYES Current LOS: 6 Anticipated DC Date: Planned Disposition: Home with Home Health Primary Insurance: [facility] PRIVATE OPTIONS [facility] Discharge Planning Comments: CM met with patient to discuss discharge planning, he sister in law (Ela) is present in the room. Verbal permission received to discuss discharge planning with GERRI in the room. She states she lives at [address] [place] [address] with a room mate (Shira Stone). She states her discharge plan is to return home with room mate. Her GERRI will drive her home. She will most likely need home health for dressing changes and possible IV antibiotics. ERICH for [facility] signed. She states she has used [place] for IV antibiotics and ERICH signed. She declines additional DME needs. I sent an email to admissions to correct home address on face sheet. I called Marina at [facility], she has asked for antibiotic orders Genesis SCOTT informed. CM will continue to follow and assist with discharge planning/needs. Ore Trimmer: Marry Waters DCPIA - Discharge Planning Initial Assessment Updated by [email or web address]: Marry Waters on 10/23/18 8:52 am * Is the patient Alert and Oriented? Yes * How many steps to enter\exit or inside your home? 1/0 * PCP Franca Guzman at Dr. Chris office * Pharmacy [facility] * Preadmission Environment Home with Family * ADLs Partial Dependent * Partial ADLs (Assistance needed) Ambulation * Equipment Walker * List name and contact numbers for known caregivers / representatives who currently or will assist patient after discharge: Marcelino - brother and medical [facility] - [phone] Ela [facility] - [phone] * Verbal permission to speak to the caregivers and representatives has been obtained from the patient. Yes * Community resources currently utilized None * Additional services required to return to the preadmission environment? Yes * Can the patient safely return to the preadmission environment? Yes * Has this patient been hospitalized within the prior 30 days at any hospital? No External Providers External Provider: [facility]OTHER Next Contact Date: Service Request Date: Service Type: Resolution: Reviewer: Comments: Coverage Notice Reviewer: [id number] - Marry Waters Notice Issued Date-Time: 10/23/2018 9:05 Notice Type: Patient Choice Letter Notice Delivered To: Patient Relationship to Patient: Self Powder Worker Tnt Name: Delivery Method: HAND - Hand Delivered Arti Days: Prior Verbal Notification: Recipient Understood Notice: Yes Recipient Signature: Yes Med Rec Note Co-signed by Attending: Coverage Notice Comment: ERICH for [facility] and [place] [facility] second choice. Last DP export: 10/23/18 1:31 pm Patient Name: GREGORIO MORALES Page [id number] at 0850 All edits/amendments must be made on the electronic document DICTATION DATE: 10/24/1849 SETTLEMENT TECHNICIAN: CHAUNCEY 10/24/18 0849 RPT#: [id number] DC DATE:10/23/18 STATUS: DIS IN [facility] [address] [place] [address] END OF REPORT
== END 2018-10-23 16:25 | disposition home health service (06) | DRG 464 ==
LOC: D.ER 00:13 → D.MS 02:34
PROVIDERS: Family Medicine; Orthopaedic Surgery; ADMIT Internal Medicine Nephrology; ATTEND Internal Medicine Nephrology
PROC: 0SPD09Z Removal of Liner from Left Knee Joint, Open Approach (ICD-10-PCS; principal; 2018-10-17 09:30)
PROC: 0SUD09Z Supplement Left Knee Joint with Liner, Open Approach (ICD-10-PCS; 2018-10-17 09:30)
DX: T84.54XA Infection and inflammatory reaction due to internal left knee prosthesis, initial encounter (principal); T81.30XA Disruption of wound, unspecified, initial encounter; F17.203 Nicotine dependence unspecified, with withdrawal; D62 Acute posthemorrhagic anemia; N39.0 Urinary tract infection, site not specified; E87.6 Hypokalemia